=== PATIENT | female | born 1950 | race Caucasian/White ===

== ENCOUNTER → 2018-04-23 14:42 | Outpatient (CLI) | payer MEDICARE, OTHER, SELFPAY ==
[2018-04-23 17:24] LABS: Absolute Neutrophil Count 1.9 X10^3/uL (2.0-7.7); Basophil# 0.02 X10^3/uL; Basophil% 0.4 % (0-1); Eosinophils% 2.1 % (0-5); Hematocrit 41.2 % (37-47); Hemoglobin 13.3 g/dl (12.0-15.0); Mean Corp Hgb Conc 32.3 g/gl (32-36); Mean Corpuscular Hgb 30.4 pg (27.0-32.0); Mean Corpuscular Volume 94.3 fL (81-99); Mean Platelet Vol. 9.2 fl (6.2-12.0); Monocyte% 10.7 % (0-10); Neutrophil # 1.85 X10^3/uL (2.7-7.7); Neutrophil % 39.6 % (47-70); Platelet Count 279 K/mm3 (150-450); RBC Distribution Width SD 44.7 fl (35.1-43.9); Red Blood Count 4.37 M/mm3 (4.2-5.4); White Blood Count 4.7 K/mm3 (4.4-11.0)
[2018-04-23 17:28] LABS: POSITIVE COUNT NO; POSITIVE DIFFERENTIAL NO; POSITIVE MORPHOLOGY NO
[2018-04-23 17:39] LABS: AST(SGOT) 16 U/L (15-37); Alanine Aminotransfer ALT/SGPT 14 U/L (13-56); Albumin, Serum 3.6 g/dL (3.2-5.0); Alkaline Phosphatase 69 U/L (45-117); Anion Gap 8 (5-15); BUN 21 mg/dL (7-18); BUN/Creat Ratio 21.2 RATIO (10-20); Calcium,Total 8.3 mg/dL (8.5-10.1); Chloride 107 mmol/L (98-107); Cholesterol 240 mg/dL (200); Creatinine, Serum 0.99 mg/dL (0.55-1.02); EST Glomerular Filtration Rate 60 mL/min (>60); Est Glom Filt Rate - Afr Amer 72 mL/min (>60); Globulin 3.5 g/dL (2.2-4.2); Glucose 88 mg/dL (74-106); High Density Lipoprotein 76 mg/dL; Potassium 4.1 mmol/L (3.5-5.1); Protein, Total 7.1 g/dL (6.4-8.2); Sodium Level 143 mmol/L (136-145); Thyroid Stim Hormone (TSH) 1.91 uIU/mL (0.358-3.74); Triglycerides 82 mg/dL; Very Low Density Lipoprotein 16 mg/dL (5-40)
== END ==
PROVIDERS: Family Provider Family Medicine; PCP Family Medicine; Visit Provider Family Medicine
DX: I10 Essential (primary) hypertension (principal); F41.8 Other specified anxiety disorders
CPT/HCPCS: 36415; 80053; 80061; 84443; 85025

== ENCOUNTER 2018-05-19 06:25 | Day surgery (SDC) | payer MEDICARE, OTHER, SELFPAY ==
[2018-05-19] VITALS (7 sets, daily range): BP systolic 108–123; BP diastolic 77–84; PULSE 61–87; RESP 16; TEMP 36.1–36.4; O2SAT 98–99; BMI 35.2
--- NOTE | 2018-05-19 | COLBX_PTH ---
PATIENT: ROWDY ALVAREZ LOC: EN U#:[id number] AGE/SX: 67/F ROOM: RE05/19/[address]: Dr. Rocky Roca MD : 1950 BED: DIS: 05/19/2018 SPEC #: [id number] RECD: 05/19/18 09:34 STATUS: JOSELYN WILBURNGreg #: [id number] SANDOVAL: 05/19/18 00:[address]: Rocky Roca DEPT: SURGICAL PATHOLOGY RECD BY: Gordon Peck ENTERED: 05/19/18 11:06 SP TYPE: COLON BX OTHR DR: Dr. Jenifer Jameson MD Tissues: A - COLON BIOPSY B - Rectum, NOS Procedures: Surgery Specimen Level IV HEADER OPERATION: Colonoscopy PRE-OP DIAGNOSIS: Screening TISSUE SUBMITTED: A. Polyp biopsy hepatic flexure, B. Polyp biopsy rectum MICROSCOPIC DIAGNOSIS A. Polyp hepatic flexure, biopsy: Fragments of tubular adenoma. B. Polyp rectum, biopsy. Hyperplastic polyp. SJ:darion 05/20/18 MICROSCOPIC DESCRIPTION Slides are reviewed. GROSS DESCRIPTION A. Received in fixative is one container labeled with the patient's name and designated polyp biopsy hepatic flexure. The specimen consists of multiple fragments of tissue measuring 0.7 x 0.5 x 0.2. The specimen is totally submitted in one cassette. B. Received in fixative is one container labeled with the patient's name and designated polyp biopsy rectum. The specimen consists of one fragment of tissue measuring 0.4 x 0.3 x 0.2. The specimen is totally submitted in one cassette. RY:darion 05/18/18 TC:1 CPT:97957t1
--- NOTE | 2018-05-19 07:30 | PCM.HP.STD ---
Problem List (1) Screening for intestinal cancer Status: Acute History of Present Illness Date of Admission: 05/19/18 The patient is a 67 year old F who presents for screening colonoscopy today. Her previous one was greater than 10 years ago. She presents via our open access program. She denies bright red blood per rectum or melena. No abdominal pain. She states that she otherwise has been enjoying good health. She does not know any direct family members who have had colon polyps or colon cancer. She denies DVT. She is not on any anticoagulants. Past Medical History Allergies No Known Allergies Allergy (Verified 05/13/18 09:33) Home Medications: Ambulatory Orders Medication Instructions Recorded Buspirone HCl 7.5 mg PO QHS 05/13/18 Duloxetine Hcl [Cymbalta] 60 mg PO DAILY 05/13/18 Valsartan [Diovan] 80 mg PO DAILY 05/13/18 busPIRone [Buspar] 15 mg PO DAILY 05/13/18 Surgical History: - - Umbilical herniorrhaphy Microsurgery left hand Remote breast biopsy Smoking Status: Never smoker Tobacco Use: Non-smoker Review of Systems Constitutional: Denies: Anorexia Eyes: Denies: Blurred vision HEENT: Denies: Dysphasia Cardiovascular: Reports: Chest Pain Respiratory: Denies: Cough Gastrointestinal: Denies: Abdominal Pain Genitourinary: Denies: Dysuria Skin: Denies: Dryness Neurological: Denies: Balance problems Psychiatric: Reports: Anxiety Endocrine: Denies: Change in Body Habitus VTE Information - Inpt Only VTE Present on Admission: No Patient Problems: Active and Suspected Problems Screening for intestinal cancer (Acute) - Physical Exam General: Alert, Oriented x3, Cooperative, No apparent distress HEENT: Atraumatic Oral: Moist Mucosa Neck: Supple, Negative Carotid Bruits Lungs: Clear to auscultation Cardiovascular: Regular rate, Regular Rhythm Abdomen: Bowel Sounds Present, Soft, Non Tender, Non-Distended Extremities: No clubbing Skin: No rashes Musculoskeletal: No Tenderness to Palpation of Joints or Extremities Lymphatic: No Cervical, Supraclavicular, or Inguinal Adenopathy Neurological: Cranial nerves II-XII grossly intact Vital Signs Temp Pulse Resp BP Pulse Ox 97.6 F L 87 16 123/84 H 99 05/19/18 06:46 05/19/18 06:46 05/19/18 06:46 05/19/18 06:46 05/19/18 06:46 Oxygen Delivery Method Room Air Weight: 186 lb 8.177 oz Body Mass Index (BMI) 35.2 Assessment/Plan All Active Problems Screening for intestinal cancer (Acute) Patient in need of a screening colonoscopy with possible biopsy or polypectomy is indicated. She does not appear to have any increased risk factors. She has had an opportunity to ask and have questions answered. We will proceed with her discretion. Rocky Roca M.D., F.A.C.S.
--- NOTE | 2018-05-19 08:01 | PCM.OPRPT ---
Problem List (1) Screening for intestinal cancer Status: Acute Report of Operation Date of Procedure: 05/19/18 Pre-Operative Diagnosis: Screening for intestinal cancer Post-Operative Diagnosis: Sessile polyp of the hepatic flexure. Sessile polyp of the rectum. Grade 2-3 internal hemorrhoids. Long lax colon Surgery/Procedure Performed:: Colonoscopy with cold forcep polypectomy Description of Surgical Findings:: Timeout informed consent was obtained. 67-year-old female was taken to the endoscopy suite. She was placed in a left lateral decubitus position. Throughout the procedure total 100 mg Demerol and 4 mg of Versed were given as intravenous sedation. Digital rectal exam demonstrated grade 2-3 internal hemorrhoids. No mass lesions. Flexible colonoscope inserted in the rectum advanced through a very elongated tortuous lax colon. Transabdominal pressure was required to get scope to go to the hepatic flexure and the patient had to be placed in the supine position with further pressure. The scope was able to be advanced to the cecum. The cecum ileocecal valve was nicely achieved. The appendiceal base appeared simply slightly prominent photographs were obtained. There appear to be some stool within it. No mass lesion. The scope was carefully withdrawn from the ascending colon to the hepatic flexure. A 5 mm sessile polyp was identified and cold forceps were used to sample and eradicate stasis was intact. The scope was further withdrawn through the very elongated transverse and descending colon. Good visualization was achieved. Bowel prep was adequate there was still liquid stool throughout the colon but that could be aspirated. The scope was withdrawn to the proximal rectum where a 4 mm sessile polyp was identified and cold forceps were used to sample and eradicate this. Excess fluid and air was aspirated free the procedure was completed she tolerated it well. Impression Sessile polyp in the hepatic flexure. Sessile polyp of the rectum. Elongated lax colon Grade 2-3 internal hemorrhoids The patient will be notified of pathology results as they become available. Consider next colonoscopy in approximately 3 years. Previous colonoscopy was greater than 10 years prior. Cc: Dr. Jenifer Jameson Medications were given at 0736. Scope was inserted 0738. The cecum was reached at 0752. The procedure was completed at 0758. Rocky Roca M.D., F.A.C.S. Type of Anesthesia:: IV Sedation
== END 2018-05-19 08:53 | disposition home or self-care (01) ==
LOC: EN 06:27 → AC 06:28
PROVIDERS: Family Provider Family Medicine; PCP Family Medicine; Visit Provider Surgery
PROC: 0DJD8ZZ Inspection of Lower Intestinal Tract, Via Natural or Artificial Opening Endoscopic (ICD-10-PCS; CPT 45378; principal; 2018-05-19 07:25)
DX: Z12.11 Encounter for screening for malignant neoplasm of colon (principal); D12.3 Benign neoplasm of transverse colon; D12.8 Benign neoplasm of rectum; K64.8 Other hemorrhoids; F41.9 Anxiety disorder, unspecified; Z79.899 Other long term (current) drug therapy
CPT/HCPCS: 45380; 88305; 99152; 99153; J7120

== ENCOUNTER → 2019-12-29 11:06 | Outpatient (CLI) | payer MEDICARE, OTHER, SELFPAY ==
[2019-12-29 15:49] LABS: Absolute Lymphocyte Count 2.72 X10^3/uL (0.83-4.51); Absolute Neutrophil Count 2.2 X10^3/uL (2.0-7.7); Basophil# 0.03 X10^3/uL; Basophil% 0.5 % (0-1); Eosinophil# 0.16 X10^3/uL; Eosinophils% 2.9 % (0-5); Hematocrit 43.1 % (37-47); Hemoglobin 13.6 g/dL (12.0-15.0); Lymphocyte # 2.72 X10^3/ul (4.0); Lymphocyte % 48.7 % (19-41); Mean Corp Hgb Conc 31.6 g/dL (32-36); Mean Corpuscular Hgb 30.4 pg (27.0-32.0); Mean Corpuscular Volume 96.2 fL (81-99); Mean Platelet Vol. 9.1 fl (6.2-12.0); Monocyte# 0.49 X10^3/uL; Monocyte% 8.8 % (0-10); NRBC Flagged by Analyzer 0 % (0-5); Neutrophil # 2.18 X10^3/uL (2.7-7.7); Neutrophil % 38.9 % (47-70); Platelet Count 306 K/mm3 (150-450); RBC Distribution Width CV 12.5 % (11.6-14.6); RBC Distribution Width SD 44.4 fl (35.1-43.9); Red Blood Count 4.48 M/mm3 (4.2-5.4); White Blood Count 5.6 K/mm3 (4.4-11.0)
[2019-12-29 15:59] LABS: AST(SGOT) 11 U/L (15-37); Alanine Aminotransfer ALT/SGPT 18 U/L (13-56); Albumin, Serum 3.4 g/dL (3.2-5.0); Alkaline Phosphatase 62 U/L (45-117); Anion Gap 3 (5-15); BUN 19 mg/dL (7-18); BUN/Creat Ratio 17.8 RATIO (10-20); Calcium,Total 8.8 mg/dL (8.5-10.1); Chloride 107 mmol/L (98-107); Cholesterol 243 mg/dL (200); Creatinine, Serum 1.07 mg/dL (0.55-1.02); EST Glomerular Filtration Rate 54 mL/min (>60); Est Glom Filt Rate - Afr Amer 66 mL/min (>60); Globulin 3.5 g/dL (2.2-4.2); Glucose 94 mg/dL (74-106); High Density Lipoprotein 79 mg/dL; Potassium 3.7 mmol/L (3.5-5.1); Protein, Total 6.9 g/dL (6.4-8.2); Sodium Level 141 mmol/L (136-145); Triglycerides 105 mg/dL; Very Low Density Lipoprotein 21 mg/dL (5-40)
[2020-01-03 08:38] LABS: Hepatitis A IgM Antibody Negative (Negative)
== END ==
PROVIDERS: PCP Family Medicine; Visit Provider Family Medicine
DX: I10 Essential (primary) hypertension (principal); E78.5 Hyperlipidemia, unspecified
CPT/HCPCS: 36415; 80053; 80061; 85025; 86709

== ENCOUNTER → 2020-12-14 14:08 | Outpatient (CLI) | payer MEDICARE, OTHER, SELFPAY ==
[2018-05-19 06:46] VITALS: BMI 35.2
[2020-12-14 17:29] LABS: Absolute Lymphocyte Count 2.46 X10^3/uL (0.83-4.51); Absolute Neutrophil Count 2.9 X10^3/uL (2.0-7.7); Basophil# 0.03 X10^3/uL; Basophil% 0.5 % (0-1); Eosinophils% 3.3 % (0-5); Hematocrit 41.8 % (37-47); Hemoglobin 13.4 g/dL (12.0-15.0); Lymphocyte # 2.46 X10^3/ul (4.0); Lymphocyte % 40.3 % (19-41); Mean Corp Hgb Conc 32.1 g/dL (32-36); Mean Corpuscular Hgb 30.3 pg (27.0-32.0); Mean Corpuscular Volume 94.6 fL (81-99); Mean Platelet Vol. 9.4 fl (6.2-12.0); Monocyte# 0.56 X10^3/uL; Monocyte% 9.2 % (0-10); NRBC Flagged by Analyzer 0 % (0-5); Neutrophil # 2.85 X10^3/uL (2.7-7.7); Neutrophil % 46.5 % (47-70); Platelet Count 343 K/mm3 (150-450); RBC Distribution Width CV 12.9 % (11.6-14.6); RBC Distribution Width SD 44.8 fl (35.1-43.9); Red Blood Count 4.42 M/mm3 (4.2-5.4); White Blood Count 6.1 K/mm3 (4.4-11.0)
[2020-12-14 17:53] LABS: AST(SGOT) 14 U/L (15-37); Alanine Aminotransfer ALT/SGPT 19 U/L (13-56); Albumin, Serum 3.6 g/dL (3.2-5.0); Alkaline Phosphatase 73 U/L (45-117); Anion Gap 5 (5-15); BUN 18 mg/dL (7-18); BUN/Creat Ratio 15.5 RATIO (10-20); Chloride 109 mmol/L (98-107); Cholesterol 258 mg/dL (200); Creatinine, Serum 1.16 mg/dL (0.55-1.02); EST Glomerular Filtration Rate 49 mL/min (>60); Est Glom Filt Rate - Afr Amer 60 mL/min (>60); Globulin 3.6 g/dL (2.2-4.2); Glucose 83 mg/dL (74-106); High Density Lipoprotein 81 mg/dL; Potassium 3.9 mmol/L (3.5-5.1); Protein, Total 7.2 g/dL (6.4-8.2); Sodium Level 141 mmol/L (136-145); Triglycerides 102 mg/dL; Very Low Density Lipoprotein 20 mg/dL (5-40)
== END ==
PROVIDERS: PCP Family Medicine; Visit Provider Family Medicine
DX: Z00.01 Encounter for general adult medical examination with abnormal findings (principal); I10 Essential (primary) hypertension; F41.8 Other specified anxiety disorders
CPT/HCPCS: 36415; 80053; 80061; 85025

== ENCOUNTER 2021-09-18 06:08 | Day surgery (SDC) | payer MEDICARE, OTHER, SELFPAY ==
--- NOTE | 2021-09-18 06:25 | PCM.HP.STD ---
HPI - General HPI Narrative ROWDY ALVAREZ, is a 71 F who presents today for surveillance colonoscopy. 2018 she had colon polyps identified. She currently has no symptoms. No abdominal pain. No bright red blood per rectum or melena. She tolerated her bowel prep. She has not had COVID-19. She states that she has been vaccinated. She is unsure about her family history because her mother has dementia. She states her mother got routine colonoscopy follow-up. [facility] Medical History (Updated 09/18/21 @ 06:[address] Rocky Roca MD) Alcohol use Asthma Cardiology follow-up encounter Chronic cough Depression High cholesterol History of echocardiogram History of irregular heartbeat History of stress test Hypertension Non-smoker Wears glasses Home Medications buspirone 15 mg PO BID 05/13/18 [History Last Taken Unknown] duloxetine [Cymbalta] 60 mg PO DAILY 05/13/18 [History Last Taken Unknown] valsartan 80 mg PO DAILY 05/13/18 [History Last Taken Unknown] calcium carbonate-vitamin D3 [Calcium 600 with Vitamin D3] 1 cap PO BID 09/14/21 [History Last Taken Unknown] pravastatin 20 mg PO DAILY 09/14/21 [History Last Taken Unknown] Allergy/AdvReac Type Severity Reaction Status Date / Time No Known Allergies Allergy Verified 09/14/21 10:00 Surgical History (Updated 09/14/21 @ 10:12 by Roxanne Montes) Hx of colonoscopy Hx of hand surgery Hx of right breast biopsy Hx of umbilical hernia repair Social History Smoking Status: Never smoker ROS Constitutional Constitutional: Reports systems reviewed and no addt'l complaints, except as documented Cardiovascular Cardiovascular: Denies chest pain Respiratory/Chest Respiratory/Chest: Denies shortness of breath at rest Gastrointestinal Gastrointestinal: Denies abdominal pain, change in bowel habits, hematochezia or melena Physical Exam Const alert, oriented x3 and no apparent distress General Appearance: cooperative and comfortable Eyes General Eye: normal appearance of both eyes Neck General: normal visual inspection Chest inspection of chest normal Resp Effort and Inspection: able to speak in complete sentences and symmetric chest movement Auscultation: clear to auscultation bilaterally Cardio regular rate and regular rhythm GI soft to palpation, non-tender and non-distended Extremity no calf tenderness Neuro oriented x3 Psych thought process normal Assessment & Plan Assessment/Plan (1) Personal history of colonic polyps: PLAN: 71-year-old female presents for a surveillance colonoscopy with possible biopsy or polypectomy as indicated. She is aware of the technique, benefit, risk, alternatives. She has had an opportunity to ask and have questions answered. She is otherwise asymptomatic. Previous colonoscopy polyps 2018. She presents via open access today. Rocky Roca M.D., F.A.C.S. Procedure Criteria Type of Procedure Procedure Type: Elective Elective Risks - COVID COVID Risk Discussion: The surgeon/proceduralist and patient have discussed in detail the risk of exposure to and/or potential harm posed by the COVID-19 virus with having a surgery/procedure at this time versus the risk of delaying the surgery/procedure. It is not possible to know either the risk of delaying the surgery or procedure or chance of getting an infection with perfect accuracy, but a joint decision was made between the patient and the surgeon/proceduralist to proceed at this time with the scheduled surgery/procedure as indicated on the consent form.
[2021-09-18 06:43] VITALS: BP 123/87; PULSE 82; RESP 16; TEMP 36.4; O2SAT 100; BMI 36.8
[2021-09-18] MEDS: Lactated Ringers 1,000 ML 100 ML IV (06:52)
--- NOTE | 2021-09-18 07:45 | COLBX_PTH ---
PATIENT: ROWDY ALVAREZ LOC: EN U#:[id number] AGE/SX: 71/F ROOM: RE09/18/[address]: Dr. Rocky Roca MD : 1950 BED: DIS: 09/18/2021 SPEC #: [id number] RECD: 09/18/21 09:49 STATUS: JOSELYN ENRIQUEZ #: [id number] SANDOVAL: 09/18/21 07:[address]: Rocky Roca DEPT: SURGICAL PATHOLOGY RECD BY: Luana Low ENTERED: 09/18/21 10:48 SP TYPE: COLON BX OTHR DR: Dr. Jenifer Jameson MD Tissues: A - Sigmoid colon biopsy B - Rectum, NOS C - Rectum, NOS Procedures: Surgery Specimen Level IV HEADER OPERATION: Colonoscopy ? open access (MAC) PRE-OP DIAGNOSIS: History of colonic polyps TISSUE SUBMITTED: A ? Proximal sigmoid polyp biopsy, B ? Rectum polyp biopsy, C - Rectum polyp #2 biopsy MICROSCOPIC DIAGNOSIS A. Proximal sigmoid polyp, biopsy: A fragment of colonic mucosa, no pathologic diagnosis. See comment. B. Rectum polyp, biopsy: Hyperplastic polyp. C. Rectum polyp #2, biopsy: Fragments of hyperplastic polyp. SJ:rg 09/19/2021 COMMENT A. Hyperplastic or adenomatous changes are not identified. MICROSCOPIC DESCRIPTION Slides are reviewed. GROSS DESCRIPTION A - Received in fixative is one container labeled with the patient's name and designated proximal sigmoid polyp biopsy. The specimen consists of one irregular fragment of light sandoval soft tissue that measures 0.3 x 0.3 x 0.1 cm. The specimen is totally submitted in one cassette. B - Received in fixative is one container labeled with the patient's name and designated rectum polyp biopsy. The specimen consists of one irregular fragment of light sandoval soft tissue that measures 0.3 x 0.3 x 0.1 cm. The specimen is totally submitted in one cassette. C - Received in fixative is one container labeled with the patient's name and designated rectal polyp #2 biopsy. The specimen consists of two irregular fragments of light sandoval soft tissue that in aggregate measure 0.3 x 0.3 x 0.1 cm. The specimen is totally submitted in one cassette. / COREEN:kaden 09/18/21 TC:1 CPT: 86710 x3
[2021-09-18 08:30] VITALS: BP 122/81; BP 123/87; PULSE 79; RESP 16; TEMP 36.3; O2SAT 97
--- NOTE | 2021-09-18 08:33 | OP.COLON_ITS ---
Patient Name: Jroy Rojas Procedure Date: 09/18/2021 7:54 AM Date of : 1950 Age: 71 Procedure: Colonoscopy Indications: High risk colon cancer surveillance: Personal history of colonic polyps Providers: Rocky Roca MD Medicines: See the Anesthesia note for documentation of the administered medications Patient Profile: Last Colonoscopy: 2017. Complications: No immediate complications. Procedure: Pre-Anesthesia Assessment: - Prior to the procedure, a History and Physical was performed, and patient medications and allergies were reviewed. The patient's tolerance of previous anesthesia was also reviewed. The risks and benefits of the procedure and the sedation options and risks were discussed with the patient. All questions were answered, and informed consent was obtained. Prior Anticoagulants: The patient has taken no previous anticoagulant or antiplatelet agents. ASA Grade Assessment: II - A patient with mild systemic disease. After reviewing the risks and benefits, the patient was deemed in satisfactory condition to undergo the procedure. After I obtained informed consent, the scope was passed under direct vision. Throughout the procedure, the patient's blood pressure, pulse, and oxygen saturations were monitored continuously. The Colonoscope was introduced through the anus and advanced to the cecum, identified by appendiceal orifice and ileocecal valve. The colonoscopy was somewhat difficult due to a tortuous colon. The patient tolerated the procedure well. The quality of the bowel preparation was good. Scope In: 8:04:07 AM Scope Withdrawal Time 0 hours 12 minutes 52 seconds Scope Out: 8:24:38 AM Total Procedure Duration Time 0 hours 20 minutes 31 seconds Findings: The digital rectal exam findings include decreased sphincter tone, non-thrombosed internal hemorrhoids and internal hemorrhoids that prolapse with straining, but require manual replacement into the anal canal (Grade III). A 4 mm polyp was found in the sigmoid colon. The polyp was sessile. The polyp was removed with a cold biopsy forceps. Resection and retrieval were complete. A 5 mm polyp was found in the rectum. The polyp was sessile. The polyp was removed with a cold biopsy forceps. Resection and retrieval were complete. A 7 mm polyp was found in the rectum. The polyp was sessile. The polyp was removed with a cold biopsy forceps. Resection and retrieval were complete. Impression: - Decreased sphincter tone, non-thrombosed internal hemorrhoids and internal hemorrhoids that prolapse with straining, but require manual replacement into the anal canal (Grade III) found on digital rectal exam. - One 4 mm polyp in the sigmoid colon, removed with a cold biopsy forceps. Resected and retrieved. - One 5 mm polyp in the rectum, removed with a cold biopsy forceps. Resected and retrieved. - One 7 mm polyp in the rectum, removed with a cold biopsy forceps. Resected and retrieved. Recommendation: - Telephone my office for pathology results in 1 week. - Repeat colonoscopy in 5 years for surveillance based on pathology results. - Continue present medications. Procedure Code(s): --- Professional --- 23034, Colonoscopy, flexible; with biopsy, single or multiple Diagnosis Code(s): --- Professional --- Z86.010, Personal history of colonic polyps K62.89, Other specified diseases of anus and rectum D12.5, Benign neoplasm of sigmoid colon K62.1, Rectal polyp K64.2, Third degree hemorrhoids CPT copyright 2017 [employer]. All rights reserved. The codes documented in this report are preliminary and upon business solutions consultant review may be revised to meet current compliance requirements. Rocky Roca MD 09/18/2021 8:32:50 AM This report has been signed electronically. Number of Addenda: 0 Note Initiated On: 09/18/2021 7:54 AM
--- NOTE | 2021-09-18 08:34 | OP.CCLET_ITS ---
09/18/2021 Jenifer Jameson [place] [id number] [address] Re : Colonoscopy procedure for Jory Rojas Dear Dr. Jameson This procedure was performed on Saturday, September 18, 2021. My impressions and recommendations are as follows: Impressions : - Decreased sphincter tone, non-thrombosed internal hemorrhoids and internal hemorrhoids that prolapse with straining, but require manual replacement into the anal canal (Grade III) found on digital rectal exam. - One 4 mm polyp in the sigmoid colon, removed with a cold biopsy forceps. Resected and retrieved. - One 5 mm polyp in the rectum, removed with a cold biopsy forceps. Resected and retrieved. - One 7 mm polyp in the rectum, removed with a cold biopsy forceps. Resected and retrieved. Recommendations : - Telephone my office for pathology results in 1 week. - Repeat colonoscopy in 5 years for surveillance based on pathology results. - Continue present medications. My findings are described in the full procedure note, which is enclosed. If I can be of further assistance, please feel free to contact me at Doctor phone number(s): Work: . Sincerely, Rocky Roca MD 09/18/2021 8:32:50 AM This report has been signed electronically.
[2021-09-18 08:35] VITALS: BP 112/75; BP 123/87; PULSE 78; RESP 16; O2SAT 97
[2021-09-18 08:40] VITALS: BP 120/81; BP 123/87; PULSE 73; RESP 16; O2SAT 99
[2021-09-18 08:45] VITALS: BP 123/87; BP 127/90; PULSE 69; RESP 16; TEMP 36.3; O2SAT 100
[2021-09-18 09:18] VITALS: BP 123/87
== END 2021-09-18 09:20 | disposition home or self-care (01) ==
LOC: EN 06:14 → AC 06:20
PROVIDERS: PCP Family Medicine; Referring Provider Family Medicine; Visit Provider Surgery
PROC: 0DJD8ZZ Inspection of Lower Intestinal Tract, Via Natural or Artificial Opening Endoscopic (ICD-10-PCS; CPT 45378; principal; 2021-09-18 07:40)
DX: Z12.11 Encounter for screening for malignant neoplasm of colon (principal); D12.5 Benign neoplasm of sigmoid colon; K62.1 Rectal polyp; K64.2 Third degree hemorrhoids; I10 Essential (primary) hypertension; E78.00 Pure hypercholesterolemia, unspecified; J45.909 Unspecified asthma, uncomplicated; F32.A Depression, unspecified; Z86.010 Personal history of colon polyps; Z79.899 Other long term (current) drug therapy; Z87.19 Personal history of other diseases of the digestive system
CPT/HCPCS: 45380; 88305; J7120; J2405

== ENCOUNTER 2022-10-08 08:00 | Outpatient (RCR) | payer MEDICARE, OTHER, SELFPAY ==
--- NOTE | 2022-10-08 09:05 | BH.SGPN.GN ---
Behaviors/Verbalizations/Mental Status: [] Eye contact is good. Motor activity is appropriate. Appearance is casual. Speech is Appropriate. Mood is depressed. Affect is flat. Thoughts are linear and logical. No evidence of psychosis. Reviewed daily check in sheet and pt reports 1/5 for suicidal ideations and 0/5 for intent. Client Response/Progress/Benefit: [] Pt participated when prompted. Attentive. Daily symptom tracker notes 3/5 for anxiety and depression. This was pt?s first day in [facility] level of care. She briefly introduced herself and stated that her goal is to ?stop living inside my head?. She mentioned struggling with depression, overwhelming thoughts, and lack of energy. Group was welcoming and offered feedback for her first day in [facility] which was beneficial. Will continue in [facility] to prevent decompensation, increase healthy coping, and improve functioning. Narrative Note: []
--- NOTE | 2022-10-08 10:15 | BH.SGPN.GN ---
Behaviors/Verbalizations/Mental Status: [] Eye contact is fair. Motor activity is appropriate. Appearance is casual. Speech is Appropriate. Mood is dysthymic. Affect is constricted. Thoughts are linear and logical. No evidence of psychosis. Client Response/Progress/Benefit: [] Client was an attentive during interactive group discussions by writing notes and sharing when prompted. Attentive during psychoeducation on the six types of boundaries (physical, emotional, intellectual, sexual, time, and material) AEB note-taking. Along with peers contributed to interactive discussion on defining what a boundary is in mental health. Client along with peers identified challenges to setting boundaries which included: fear of other's response, guilt, fear of losing relationships, and lack of confidence. Worked with peers to identify the benefits to setting boundaries such as increased control, benefit to mental health, and increased confidence. Client reported constantly renegotiating boundaries can increase stress level. Recognizes importance of setting and following through with boundaries. Will continue in IOP to decrease depression, increase follow through of healthy coping skills, and prevent decompensation.
--- NOTE | 2022-10-09 10:10 | BH.SGPN.GN ---
Behaviors/Verbalizations/Mental Status: [] Eye contact is good. Motor activity is appropriate. Appearance is casual. Speech is Appropriate. Mood is anxious. Affect is congruent. Thoughts are linear and logical. No evidence of psychosis. Client Response/Progress/Benefit: [] Pt participated when prompted, however did not fill out stress worksheet. Attentive during psychoeducation. Attentive during interactive group discussions on defining stress, benefits of stress, and how they respond when feeling overwhelmed with stress. Benefited from increased understanding of stressors and how they can impact mental health. Will continue in IOP to maintain safety, prevent decompensation, and increase healthy coping. Narrative Note: []
--- NOTE | 2022-10-09 10:35 | BH.NA_ITS ---
Physical Data - Vital Signs Pulse Rate: 83 Blood Pressure: 148/99 - Height/Weight Height: 1.55 m Weight:: 86.183 kg Weight in Pounds: 190.0 lbs Current Medication Compliance - Medication Compliance Do you take your medication as prescribed?: Yes Nutritional History - Appetite Nutritional Instructions:: If client shows signs of a swallowing problem, weight change of 10 pounds or more in the last month, or is on a diabetic diet, the physician will review and request a dietitian consult, as appropriate. All unintentional weight loss will be referred to the physician for decision on need for dietitian consult. Describe your appetite:: Fair - Client states she has gradually been losing a small amount of weight unintentionally, and states her appetite is somewhat decreased. Functional Assessment - Sleep Pattern Describe any problems with sleeping: Client states she sleeps about 6-8 hours per night. - Activities Motor Activity:: Functional Sensory/Communication Assess - Vision Problems Do you have any vision problems?: Glasses - Communication Problems What is your primary language?: Luxembourgish Medical Problems/History - Cardiac Conditions Cardiovascular: Hypertension, Other (See comments) - high cholesterol, history of an irregular heartbeat - Respiratory Conditions Respiratory: Asthma - as a child- no issues in over 50 years - Musculoskeletal Conditions Musculoskeletal: Other (See comments) - osteopenia - Pain Assessment Do you have acute or chronic pain?: No Surgical History - Surgical History Have you had any surgeries? If so, list type and date:: Yes - hand surgery, dodie ast biopsy, umbilical hernia Substance Abuse - Substance Abuse Please describe substance abuse in the last 30 days:: Client reports for over 20 years, she has been drinking alcohol daily, usually 16oz of wine or beer. Client denies tobacco or substance use. Client drinks 1-2 cups of coffee per day. Mental Status Summary - Mental Status Significant Findings/Observations on Appearance and Mood:: Client is alert and oriented x 4. Client is casually groomed with good hygiene. Client is cooperative with assessment. Client makes good eye contact. Client's voice has normal rate and volume. Client has appropriate affect and makes logical associations. Client has normal processing. Client denies delusions/hallucinations. Client denies SI, but does state for about the last 20 years she has felt indifferent about if she wakes up in the morning or not. Suicide Assessment - Suicidal Ideation Are you currently or have you been suicidal in the past?: Yes - survival ambivalence- denies active SI Suicidal Intentional Rating Scale (SIRS): Suicidal thoughts (past) Physician Notification: If Active suicidal thoughts/Will not contract for safety is checked, contact physician and document in the Physician Notification section below. Assault History/Potential Past Psychiatric History - MH Treatment Hx Past Psychiatric Medications:: Prozac Age of first mental health symptoms: Client states she was first medicated for depression around age 42. Current providers for mental health treatment (counselor, psychiatrist, registered nurse hh case manager, etc.): Dr. Martinez at [facility] Fall Risk Assessment - Age Age: 60-70 - Mental Status Mental Status: Willing & able to ask for assistance when needed - Physical Status Physical Status: No problems - Impairments Impairments: None - Elimination Elimination: Continent AND independent - Gait or Balance Gait or Balance: Walks independently - Hx of Falls History of falls in the past 6 months: No known history - Medications/Substances Psychotropics:: Antidepressants Medications/substances used within the past 24 hours or ordered to administer: 1-2 of the medications/substances listed above - Total Score Total Points:: 2 RN Summary of Impressions - Impressions Recommendations: Include psychiatric and medical issues, treatment planning recommendations, and discharge planning needs. Impressions: Psychiatric Issues: 1. Major depressive disorder, recurrent, severe without psychosis. 2. Generalized anxiety disorder - Level of Care How do the client's current symptoms and functional deficits support need for this level of care?: Client was self-referred to IOP for depression symptoms. Client states she has been depressed for many years, but states she has been more depressed since 2018 when she moved to [place] to care for her mom who has dementia. Client states for about 20 years, she has felt like I don't care if I wake up in the morning or not. Client reports decreased interest in doing ADL's, stays in bed for as long as she can everyday, and anhedonia. IOP will promote gains and prevent further decompensation while providing social support and skills training.
--- NOTE | 2022-10-09 11:10 | BH.SGPN.GN ---
Behaviors/Verbalizations/Mental Status: []Pt alert and oriented, casually dressed and groomed. Eye contact good. Motor activity appropriate. Speech within normal limits. Affect constricted, mood anxious. Thoughts linear, logical, no signs of hallucinations or delusions. Client Response/Progress/Benefit: []Pt participated at times during group discussions. Attentive during psychoeducation. Participated in experiential activity in which group members had to utilize stress management skills in the moment. Pt agreed with peers that their cooperation and communication was a helpful resource and pt worked well with peers to problem-solve the stressors presented. Pt engaged in review of the 4 A?s and picked wanting to work on accepting and adapting her stressors. Pt specified that she wants to let go of anger she feels about house projects and set more realistic goals. Benefited from processing in the moment stress management strategies and identifying new ways to cope with stress. Will continue in IOP tx to prevent decompensation, improve overall functioning, and gain healthy coping skills. Narrative Note: []
[2022-10-09 12:10] VITALS: BP 148/99; PULSE 83
--- NOTE | 2022-10-09 12:39 | BH.PSY.EVA_ITS ---
Psychiatric Evaluation Initial Evaluation Initial Evaluation: History of Present Illness: [] The patient is a 72-year-old female with a history of depression who referred herself to the [facility] behavioral health IOP program. She referred herself because over the last year or so she has had worsening symptoms of depression that have been making it difficult for her to function and have impacted the quality of her life. She feels she has to devote energy into putting a life together in [place]. 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 Part of the reason she retired is because her father and brother both at age 62 of throat cancer and some other kind of cancer respectively. Her then lost his job in [place] when the patient was 54 years old he did not get a new job in [facility] and [place] specifically was too expensive to live for them without the patient working so they moved to [facility] in 2018 from [place]. In addition the patient's mother was placed into a custodial for [facility] in 2018 and that is part of the reason she moved back to [place]. She had a brother in [place] but the same day she moved to [place] he moved to [place]. She has no other people she knows in [place] and feels she has no support in [place]. 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 COVID pandemic in 2019 worsened her situation. Her had a triple bypass in 2019 and he has hypertension, gastroparesis, diabetes insipidus and broke his right shoulder after falling down while drunk. Her biggest stress now she states is her who is 68 years old and has numerous health problems. is unable to drive so she has to constantly drive him to doctor appointments in [place] and cooks for him and shops for him and other. The patient wants to socialize, volunteer and likes to be politically active but does not have the energy and possibly does not have the time to do this. She has been isolating herself due to feeling down and sad. She has anhedonia, decreased appetite, lack of motivation and low energy which makes it difficult to get out of bed. She denies panic attacks and denies any history of self- harm. She drinks 2 cups of coffee daily. She sleeps around 7 hours a night but will would stay in bed until noon if she could but has to get out of bed to take care of her . Concentration is decreased although she is able to enjoy reading a book when she gets time. She admits to passive thoughts of and endorses hopelessness and worthlessness. She is a worrier by nature but denies panic attacks. She denies guilt, suicidal ideation, homicidal ideation, hallucinations, delusions or symptoms of janet ever. She denies eating disorder, PTSD, trauma or seizure or head trauma. Current Psychiatric Medications: [] Cymbalta 60 mg p.o. daily (on the same dose for 5 to 10 years); BuSpar 15 mg p.o. daily for over 5 years. Past Psychiatric History: [] She sees Dr. Martinez for medication since 2018. No counseling since 2018 but would like to go back to it as it has been helpful in the past. She was first depressed in her teenage years and took her first psychiatric medications while in her 40s. She saw a counselor 1 time when she was in graduate school. Then saw psychiatrist in the late 1980s until moving to [place] in 2018 and also got counseling. She has never been admitted to the hospital for psychiatric admissions and no suicide attempts. She took Prozac in the past and is not sure if she took any other medications. Substance Use History: [] She drinks 1 to 2 glasses of wine with dinner and occasionally has a whiskey night But has been tapering off alcohol as she is losing interest in drinking. She denies any rehab in anything or any other drug use or any other heavier drinking. She denies blacking out, morning drinking or symptoms of withdrawal ever. Denies any nicotine or marijuana or other illicit drug use. Allergies: [] No known allergies Medications: [] Psych medications as dictated above plus valsartan, pravastatin, calcium and vitamin D for osteopenia Past Medical History: [] Hypertension, elevated cholesterol, osteopenia. She had umbilical hernia repair after the of her second child and a left thumb surgery. She is a 2 para 2 female with 2 adult children. Denies any other medical illnesses. Family Psychiatric History: [] Mother has history of depression. Several autistic distant cousins on her father side of the family. No completed suicides in the family. No substance issues known in the family. Personal/Social History: [] Patient was born in [place] but raised in [place]. She moved around a lot throughout her childhood until she went to college and during her childhood moved from [place] to [place], to [place], to [facility], to [place] and then back to [place] before going to college. Her father was always working and traveling and they were always changing schools and this was frequently difficult for her. She is 1 of 5 children and felt constant judgment from her mother and her success was measured by her grades in school. She feels this pressure from her mother caused her to only be interested in doing things that she received tangible credit for. She had 1 brother who at age 24 brain cancer. The patient is and lives in a house in [place] with her who she is currently taking care of. They had a son and a daughter who are now 35 and 37 years old respectively. Her son lives in [place] and her daughter lives in [place]. She has one 2-1/2-year-old granddaughter who she sees daily videos of but does not see in person very often. 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 She went through menopause around age 52 and had no problems. Legal History: [] No arrests or DUIs. 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 Review of Systems: [] Occasional chest pain which she believes to be stress related and she has seen a director it project and had a work-up done since 2014 off-and-on and there were no concerns. Joint pain in her hips but otherwise review of systems negative except as noted in present illness. Vital Signs: [] Vital signs and exam are reviewed in the medical records and in the nurses notes and updated and the patient is deemed medically able to participate in the IOP program. Mental Status Examination: [] The patient is a 72-year-old female who appears normal for stated age and is casually dressed and groomed with good hygiene. She is ambulatory with a normal gait and is cooperative during the interview. She has no psychomotor agitation or retardation. Eye contact is good and speech is normal rate and rhythm and fluent with no pressure. Mood is depressed. Affect is mildly constricted to full and normal. Thought process is goal-directed and organized. Thought content: The patient wishes to have the time and energy to pursue socializing, volunteer work and volunteer political activity. There is evidence of passive thoughts of . There is no evidence of suicidal ideation, plan for suicide, homicidal ideation, hallucinations, delusions or janet. Reality testing is intact. Impulsivity is low. Intelligence is above average. Judgment is intact. Insight is fair to good. Diagnoses: [] 1. Major depressive disorder, recurrent, severe without psychosis 2. Generalized anxiety disorder 3. Primary support issues Plan: [] The patient will start the IOP program at [facility] as the structure, support, education and group therapy will hopefully prevent worsening of the patient's symptoms that might require hospitalization. She felt safe during the interview and if it anytime she does not feel safe she will let us know or go to the emergency room. The risk, options, possible complications and side effects of medication options were discussed with the patient and she understands and accepts these. She will continue on her Cymbalta for now. She understands that it may not be working as efficiently as it did in the beginning but I would not recommend increasing it as it might just lead to urinary retention and other anticholinergic side effects. The patient agrees to add Wellbutrin XL 150 mg p.o. every morning. The patient understands that she will continue counseling after the IOP program and understands the need to limit her alcohol use. I will see the patient in follow-up in 2 weeks and she will continue to follow-up with her outpatient providers.
--- NOTE | 2022-10-09 12:52 | BH.DR.ITP ---
Initial Treatment Plan Patient Information Visit Information: ADMISSION DATE: EXPECTED LOS: 4-6 weeks Problems/Symptoms Problem #1:: Depression Symptom:: Sadness, hopelessness, worthlessness, fatigue, isolation, anhedonia, low energy, passive thoughts of , decreased concentration Problem #2:: Anxiety Symptom:: Worry, rumination
--- NOTE | 2022-10-11 09:10 | BH.SGPN.GN ---
Behaviors/Verbalizations/Mental Status: [] Eye contact is good. Motor activity is appropriate. Appearance is casual. Speech is Appropriate. Mood is euthymic. Affect is full. Thoughts are linear and logical. No evidence of psychosis. Reviewed daily check in sheet and pt reports 1/5 for suicidal thoughts and 0/5 for intent. Client Response/Progress/Benefit: [] Pt participated at times during the group discussion. Attentive. Emotion for today is ?hopeful?. Daily symptom tracker notes 3/5 for depression and 2/5 for agitation. Mental health win was that she prepared a meal yesterday which took a concerted effort, planning, shopping, and organizing. Shared that she had not done this is some time during to lack of motivation and energy. Identified the benefits of this to her mood and overall wellness. Shared a few stressors as well. Benefited from group support, encouragement, and feedback. Will continue in IOP to improve functioning and prevent decompensation.? Narrative Note: []
--- NOTE | 2022-10-11 10:10 | BH.SGPN.GN ---
Behaviors/Verbalizations/Mental Status: []Eye contact is good. Alert and oriented. Motor activity is appropriate. Appearance is casual. grooming is appropriate. Speech is Appropriate. Mood is dysthymic. Affect is constricted. Thoughts are linear and logical. No evidence of psychosis or hallucinations. Client Response/Progress/Benefit: []Client passive participate AEB providing no contributions, however did appear to listen attentively to others. The group identified barriers to managing emotions such as unable to identify the emotion, negative self-talk, catastrophizing, jumping to conclusions, personalizing, and reading other?s body language. During group activity, client mostly quiet. Client benefited from session to gain understanding on the importance of managing emotions to improve daily functioning. Client will continue IOP to decrease depression, improve daily functioning, and prevent decompensation.
--- NOTE | 2022-10-11 11:19 | BH.SGPN.GN ---
Behaviors/Verbalizations/Mental Status: []Pt alert and oriented, casual appearance. Eye contact good. Motor activity appropriate. Speech within normal limits. Affect constricted, mood depressed. Thoughts linear, logical, no signs of hallucinations or delusions. Client Response/Progress/Benefit: []Pt engaged in session AEB pt listening attentively to peers, taking notes, and providing some input. Attentive during psychoeducation on 4 zones of regulation. Pt able to identify feelings and behaviors pt exhibits for each zone.? Pt identified coping skills one can use to support self in each zone. Pt stated belief that pt is in the yellow zone today as pt feels anxious and agitated today. Pt reports spending time listening to music and doing a craft will help pt get out of the yellow zone today. Benefited from increased education on zones of regulation or stages of alertness for emotions and healthy coping skills to use for each zone. Pt will IOP tx to increase mood stability, reduce apathy, and improve healthy habits. ? Narrative Note: []
--- NOTE | 2022-10-11 14:45 | BH.MDN_ITS ---
Multi-Disciplinary Note - Note 45-min Individual Time Started:: 12:20 Date: 10/11/22 Purpose of session/treatment goals addressed:: To gather information on pt's current stressors, symptoms, triggers, and tx goals. Another goal was to build rapport and provide emotional support. Eye Contact:: Good Motor Activity:: Restless Appearance:: Casual Speech:: Appropriate Mood:: Anxious, Dysthymic Affect:: Constricted Thoughts:: Linear, Logical, No evidence of hallucinations/delusions noted Staff Interventions:: rapport building, strengths perspective, treatment planning, goal setting Client Response:: Pt responded well to session, open to meeting with therapist. Pt reports IOP went well this week, but she struggles to talk about her emotions. Pt describes herself as well defended and shared it is hard for her to identify and verbalize emotions. Pt reports belief this came from her mother and upbringing. Pt shared her mother was not an emotional person and her family often avoided emotional situations like funerals. Pt identified her treatment goals as I want to get yanira out of life and learning how to feel and talk about her emotions. Pt has had therapy in the past and found it helpful. Pt able to identify times in life she has felt yanira which were times where pt was out of control. Pt used to enjoy volunteering for political causes and connecting with like-minded people. Pt and her moved to [facility] and pt having a hard time finding things she enjoys. Pt reports her relationship with her has a lot of resentment. Pt shared she may want to work on how to cope with this relationship in future sessions. Risks/Concerns:: Pt denies any active SI, plan, or intent as of 10/11/22. Pt is future oriented. Progress Toward Goals/Plan:: Pt's first week of IOP tx. Pt reports her first week went fine and that group therapy is new to her. Pt endorses a depressed mood, anhedonia, lack of motivation, lack of energy, irritability, worth lessness, passive thoughts of , and no yanira in life. Pt reports stressors with being a caregiver and within her marriage. Pt will continue IOP tx to prevent decompensation, improve overall functioning, and gain healthy coping skills. Time Stopped:: 13:05
--- NOTE | 2022-10-11 15:11 | BH.MTP ---
[facility] Treatment Plan - Patient Information Program Physician:: Dr. Sarah Castellon Primary Therapist:: Gianna GIRALDO - Psychiatric Diagnoses Psychiatric Diagnoses:: Major depressive disorder, recurrent, severe without psychosis F 33.2; Generalized anxiety disorder Diagnosis Code(s):: F 33.2 - Estimated LOS Estimated LOS (in weeks):: 6 Problem/Goal #1 - Problem/Goal #1 Stated Goal:: Pt will decrease depressive symptoms, anhedonia, low motivation, survival ambivalence, and isolation. Description of Barriers: Pt reports interpersonal relationship stressors, difficulty identifying and feeling her emotions, and a hard time being vulnerable with people. 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 Functional Impact: Pt is a 72-year-old female with a history of depression. Pt referred herself to [facility] tx due to worsening mental health symptoms that is impacting her functioning. At admission, pt reported decompensation over the past 4 months with low energy, lack of motivation, poor focus, poor concentration, hopelessness, and isolation. Pt also admits to survival ambivalence and pt reports finding no yanira in life. Pt reported difficulty completing ADLs and increased irritability. At admission, pt's symptoms are impacting her social, familial, and daily functioning. Goal Relevant Strengths/Supports: Pt is intelligent, motivated, and has outpatient psychiatry. - Objectives Objective #1 Stated Objective: Pt will learn and utilize 2-3 healthy coping strategies to better manage depressive symptoms as shown by a reduced DSM-5 scores for depression and SI. Interventions: Through group and individual sessions, therapist will help pt identify triggers and warning signs of depression and emotional dysregulation including emotional, physical, and behavioral changes. Therapist will teach pt various coping skills to manage her symptoms and give pt tangible resources to use to regulate emotions. Therapist will use cognitive restructuring techniques and help pt gain awareness of negative thoughts that reinforce guilt and depression. Therapist will provide psychoeducation on maintenance cycles and help pt learn ways to break unhealthy maintenance cycles. Therapist will help pt incorporate behavioral activation and assist pt in setting SMART goals. Discharge Criteria: Pt will have met this goal when can report learning and using at least 2 coping skills to manage depressive symptoms. Additionally, pt will have met this goal when depressive symptoms and SI have reduced on the DSM-5 scale. Target Date: 11/19/22 Review Date: 10/29/22 Status: open Objective #2 Stated Objective: Pt will reduce anhedonia and isolation by identifying 2-3 hobbies or activities pt would benefit from in her community. Interventions: Therapist will utilize CBT techniques to provide psychoeducation on maintenance cycles, behavioral activation, and negative thinking patterns. Therapist will help pt explore old interests and help pt set goals to engage in new hobbies. Therapist will use motivational interviewing and thought challenging when needed. Discharge Criteria: Pt will have met with this goal when pt can report at least two hobbies she could participate in and schedule to begin this hobby. Target Date: 11/19/22 Review Date: 10/29/22 Status: open Problem/Goal #2 - Problem/Goal #2 Stated Goal:: Pt will reduce anxiety, irritability, and rumination while increasing ability to function on daily basis Description of Barriers: Pt reports interpersonal relationship stressors, difficulty identifying and feeling her emotions, and a hard time being vulnerable with people. 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 Functional Impact: Pt is a 72-year-old female with a history of depression. Pt referred herself to [facility] tx due to worsening mental health symptoms that is impacting her functioning. At admission, pt reported decompensation over the past 4 months with low energy, lack of motivation, poor focus, poor concentration, hopelessness, and isolation. Pt also admits to survival ambivalence and pt reports finding no yanira in life. Pt reported difficulty completing ADLs and increased irritability. At admission, pt's symptoms are impacting her social, familial, and daily functioning. Goal Relevant Strengths/Supports: Pt is intelligent, motivated, and has outpatient psychiatry. - Objectives Objective #1 Stated Objective: Pt will identify 2-3 anxiety triggers and 2 coping skills to use when feeling anxious to manage anxiety as shown by decreasing DSM-5 scores for anxiety. Interventions: Therapist will provide education on anxiety, avoidance behaviors, and maintenance cycles. Therapist will help pt explore personal symptoms and warning signs of anxiety. Therapist will teach pt coping skills to improve emotional regulation, mindfulness, and distress tolerance to help pt cope with anxiety in the moment. Discharge Criteria: Pt will have accomplished this goal when can identify at least 2 triggers and report using 2 coping skills to manage anxiety. Additionally, pt will have accomplished this goal when DSM-5 scores show a reduction for anxiety. Target Date: 11/19/22 Review Date: 10/29/22 Status: open Objective #2 Stated Objective: Pt will reduce anxiety and feelings of being overwhelmed and increase structure by accomplishing 2-3 small self-care goals a week. Interventions: Through group and individual sessions, pt will learn how to set small SMART goals to promote self-care and stress management. Therapist will provide education on stress and teach pt effective stress management strategies. Discharge Criteria: Pt will have accomplished this goal when can report accomplishing at least two small goals a week. Target Date: 11/19/22 Review Date: 10/29/22 Status: open
--- NOTE | 2022-10-11 15:17 | BH.PSA ---
Source of Information - Presenting Problems/Circumstances Problems, Referral Source, Mental Status, Client: Pt is a 72-year-old female with a history of depression. Pt referred herself to [facility] tx due to worsening mental health symptoms that is impacting her functioning. At admission, pt reported decompensation over the past 4 months with low energy, lack of motivation, poor focus, poor concentration, hopelessness, and isolation. Pt also admits to survival ambivalence and pt reports finding no yanira in life. Pt reported difficulty completing ADLs and increased irritability. At admission, pt's symptoms are impacting her social, familial, and daily functioning. Psychiatric Presentation - Psych Issues & Need for Admission Psychiatric Issues:: Major depressive disorder, recurrent, severe without psychosis F 33.2; Generalized anxiety disorder Past Psychiatric History - Treatment Hx Treatment History: Pt sees Dr. Martinez for medication since 2018. No counseling since 2018 but would like to go back to it as it has been helpful in the past. She was first depressed in her teenage years and took her first psychiatric medications while in her 40s. She saw a counselor one time when she was in graduate school. Then saw psychiatrist in the late 1980s until moving to [place] in 2018. She has never been admitted to the hospital for psychiatric admissions and no suicide attempts. She took Prozac in the past and is not sure if she took any other medications. First hospitalization:: n/a Most recent hospitalization:: n/a Medication Trials:: Yes ECT Therapy:: No Age of first mental health symptoms: See tx history Describe (age, circumstance, etc) any past hospitalizations: pt has no previous hospitalizations. Current providers for mental health treatment (counselor, psychiatrist, machine adjuster leader case trim, etc.): Dr. Martinez for medication management. Does not have a therapist. Development & Family of Origin - Childhood Significant Childhood Events: Pts father was big in the corporate world so pt and her family moved around very frequently throughout her childhood. Pt shared this made it difficult for pt to connect with peers and pt felt constantly like she did not fit in. Pt shared her mother was highly judgmental of pt which pushed pt to excel at school and strive for perfection to get her mother's approval. - Family Who currently lives in your home?: Pt lives with her and their cats. Describe family composition:: Pt is and lives in a house in [place] with her who she is currently taking care of. They have a son and a daughter who are now 35 and 37 years old respectively. Pt was the oldest of five children and she is not close with any of her surviving siblings. One of pt's brothers at 24 from cancer. Pt's father is and pt's mother has Alzheimer's and is in a mcc. - Family History Family Hx of Psychiatric or AOD Problems: Mother has history of depression. Several distant cousins on her father side of the family who pt thinks have autism. No completed suicides in the family. No substance issues known in the family. Pt's son is diagnosed with bipolar disorder. Ethnicity - Culture Do you identify yourself with any particular cultural, ethnic background, or community?: No - Sexuality Sexual Orientation: Heterosexual Spirituality - Yarsani Do you currently identify with any organized restoration?: None - Beliefs Is there a particular form of support from this community you can use for your recovery?: No Mental Status - Memory Recent Memory: Good Remote Memory: Good - Concentration Concentration: Good - Eye Contact Eye Contact: Good - Speech Speech: Soft - Thought Process Thought Process: Ruminations Insight: Fair Judgment: Fair Behavior: Normal - Orientation Orientation: Time, Person, Place, Situation - Appearance Appearance: Appropriate - Mood Mood: Depressed, Irritable - Affect Affect: Constricted Suicide Assessment - Suicidal Ideation Have you ever felt like hurting yourself?: Yes Please explain:: Pt reports passive thoughts of currently, but no report of suicidal ideations. No history of attempts. Were you using ETOH/drugs at the time?: No Suicidal Intentional Rating Scale (SIRS): Current suicidal thoughts/No plan/Contracts for safety Physician Notification: If Active suicidal thoughts/Will not contract for safety is checked, contact physician and document in the Physician Notification section below. Violent Behavior/Abuse History - Homicidal Ideation Do you have any homicidal thoughts? If so, explain:: No Is there a known potential victim? If yes, who:: No - Abuse Have you ever been abused?: No Please explain:: Pt did not report having trauma, but based on pt's history, pt likely experienced multiple adverse experiences as a child. Pt moved around frequently as a child, reported her mother was very critical and had high expectations, and pt did not see her father very much. Pt shared her family did not show affection or emotions. - Life Events Are there any other significant life events?: , Hardships, Family illness Describe significant life events: Pt is the primary caregiver for her and she cares for her mother as well. Pt's son has bipolar disorder and he has struggled to function independently. Pt has limited social support since moving to [place] and the pandemic. - Safety Do you ever feel threatened in your home? If yes, describe:: No Adult Social History - Age 20 to Present Describe your current support system:: Pt reports very limited support. Pt has been wanting to get involved in volunteering groups in [place], but has not yet. Substance Use - Substance Substance Use Type: Alcohol, Caffeine - Specific Drugs What specific drugs have you used?: She drinks 1 to 2 glasses of wine with dinner and occasionally has a whiskey night But has been tapering off alcohol as she is losing interest in drinking. She denies any rehab in anything or any other drug use or any other heavier drinking. She denies blacking out, morning drinking or symptoms of withdrawal ever. Denies any nicotine or marijuana or other illicit drug use. Leisure/Social Activities - Interests What do you enjoy or might be interested in learning about?: Pt is interested in volunteering. Pt used to be active in the [employer]. Education & Occupational Histo - Education What is your level of education?: Doctorate Degree - 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 If yes, describe:: No - Court Orders Have you had any past court orders for psychiatric treatment?: No Do you have a present court order for psychiatric treatment?: No Problem Checklist - Current Problem Areas Problem List: Nutritional/Eating pattern changes, Depressed mood/sad, Anxiety, Anger/aggression, Inattention, Substance use, Sleep problems, Pertinent health issues - Hypertension, elevated cholesterol, osteopenia, Additional psychosocial stressors Discharge Planning Needs - Anticipated Follow-Up Private Therapist/Psychiatrist:: Dr. Martinez- Psychiatrist [facility] Assessment - Client's Needs What are the client's strengths?: Pt is intelligent, motivated, and has outpatient psychiatry. Diagnoses - Diagnoses Diagnosis #1:: Major depressive disorder, recurrent, severe without psychosis F 33.2 Diagnosis #2:: KERRIE Interpretive Summary - Interpretive Summary Interpretive Summary: Pt is a 72-year-old female with a history of depression who referred herself to [facility]. Pt referred herself because over the last year or so she has had worsening symptoms of depression that have been making it difficult for her to function and have impacted the quality of her life. She feels she has to devote energy into putting a life together in [place]. 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 Part of the reason she retired is because her father and brother both at age 62 of throat cancer and some other kind of cancer respectively. Her then lost his job in [place] when the Pt was 54 years old he did not get a new job in [place] and [place] specifically was too expensive to live for them without the Pt working so they moved to [place] in 2018. In addition Pt's mother was placed into a mcc for dementia in 2018 and that is part of the reason she moved back to [place]. She had a brother in [place] but the same day she moved to [place] he moved to [place] per pt?s report. She has no other people she knows in [place] and feels no support in [place]. 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 COVID pandemic in 2020 worsened her situation as it further isolated pt and prevented pt from engaging in social hobbies. Her had a triple bypass in 2019 and he has hypertension, gastroparesis, diabetes insipidus and broke his right shoulder after falling down while drunk. Pt reports she drinks every night, but pt denies that she has a drinking problem. Pt has never been to [facility] but knows about the resource. Her biggest stress now she states is her who is 68 years old and has numerous health problems. is unable to drive so she has to constantly drive him to doctor appointments in [place]) and cooks for him and shops for him and drives him everywhere. Pt wants to socialize, volunteer and likes to be politically active but does not have the energy and possibly does not have the time to do this. She has been isolating herself due to feeling down and sad. She has anhedonia, decreased appetite, lack of motivation and low energy which makes it difficult to get out of bed. She denies panic attacks and denies any history of self-harm. She drinks 2 cups of coffee daily. She sleeps around 7 hours a night but will would stay in bed until noon if she could but has to get out of bed to take care of her . Concentration is decreased although she is able to enjoy reading a book when she gets time. She admits to passive thoughts of and endorses hopelessness and worthlessness. She is a worrier by nature but denies panic attacks. She denies guilt, suicidal ideation, homicidal ideation, hallucinations, delusions or symptoms of janet ever. She denies eating disorder, PTSD, trauma or seizure or head trauma. Treatment Plan Recommendations - Recommendations Guidelines: Special needs identified to be included in the development of an individualized treatment plan regarding past psychiatric history and treatment, developmental events, family relationships/events/culture, past and/or current educational, occupational, social, and residential experience, and legal status. Recommendations:: Pt will start IOP as the structure, support, education and group therapy will hopefully prevent worsening of the pt?s symptoms that might require hospitalization. She felt safe during the interview and if it anytime she does not feel safe she will let us know or go to the emergency room. Pt understands that she will continue counseling after the IOP program and understands the need to limit her alcohol use. Pt has outpatient psychiatry, but no counseling.
--- NOTE | 2022-10-15 09:10 | BH.SGPN.GN ---
Behaviors/Verbalizations/Mental Status: [] Eye contact is good. Motor activity is appropriate. Appearance is casual. Speech is Appropriate. Mood is anxious/irritable. Affect is congruent. Thoughts are linear and logical. No evidence of psychosis. Reviewed daily check in sheet and 1/5 for suicidal ideations and 0/5 for intent. Client Response/Progress/Benefit: [] Pt participated at times. Attentive. Emotion for today is ?detached and irritable?. ?Daily symptom tracker notes 3/5 for depression and 2/5 for agitation. She could not identify any wins stating, ?but I have a lot of stressors?. Her son was scheduled to come to [place] for Thanksgiving giving however cancelled at the last minute. There does not appear to a specific reason other than he just changed his mind. Pt reports that in the past she would make a traditional meal however w/o her son and her ?s ?gastro? issues she instead is just going to make something else. Despite this stressor she focused a great deal on her distress with the cleanliness of her house. The clutter has prevented her from cleaning thoroughly. This impacts her mental health. Group provided some feedback, and she reports wanting to hire a professional overhead cleaner maintainer to come and remove the clutter so she can begin to clean herself more routinely. Benefited from group support, encouragement, and feedback. Will continue in IOP to prevent decompensation, stabilize mood, and improve functioning. Narrative Note: []
--- NOTE | 2022-10-15 10:10 | BH.SGPN.GN ---
Behaviors/Verbalizations/Mental Status: []Eye contact is good. Motor activity is appropriate. Appearance is casual. Speech is Appropriate. Mood is depressed. Affect is flat. Thoughts are linear and logical. No evidence of psychosis. Client Response/Progress/Benefit: []Pt participated at times during the group discussions. Attentive during psychoeducation AEB note-taking and providing input when prompted. Participated in interactive discussion amongst peers on the definition and examples of crisis, stating that for her ?crisis is having something to accomplish but being unable to due to something else getting in the way. Engaged in conversations as peers identified unhealthy responses to crisis which included; substance use, avoidance, isolation, sleeping, risky behaviors, denial, etc. Pt identified her nehemiah signs to crisis which included ?intentionally being rude or making jokes about people because she finds it funny in the moment. Benefited from increased awareness of crisis and personal warning signs. Will continue in IOP to prevent decompensation, stabilize mood, and increase healthy coping. Narrative Note: []
--- NOTE | 2022-10-15 11:10 | BH.SGPN.GN ---
Behaviors/Verbalizations/Mental Status: []Client alert and oriented, casually dressed and groomed. Eye contact fair. Motor activity appropriate. Speech within normal limits. Affect constricted. Mood dysthymic. Thoughts linear, logical, no signs of hallucinations or delusions. Client Response/Progress/Benefit: []Client responded well to session as evidenced by client listening attentively to others and providing strategies during discussion. Client identified her warning signs for crisis and gained further awareness of earliest warning signs. Client created a crisis action plan to help client better manage warning signs for crisis. Client?s action plan for rudeness included: being aware humor is often hurtful, saying things with tact, THINK acronym, and opposite action. Client appeared to benefit from creating a crisis action plan and increasing self-awareness. Client to continue IOP to increase healthy coping skills, challenge distorted thoughts, and prevent decompensation.
--- NOTE | 2022-10-16 09:05 | BH.SGPN.GN ---
Behaviors/Verbalizations/Mental Status: []Pt eye contact fair, casually dressed, motor activity appropriate, speech normal rate and tone, mood dysthymic, constricted affect, thoughts linear and intact, no evidence of delusions or hallucinations. Reviewed daily check in sheet and no reports of suicidal ideations or intent. Client Response/Progress/Benefit: []Client responded well to session AEB listening attentively to others and sharing thoughts and feelings. Client initially stated she doesn't have any wins to share. Client eventually reported coming to IOP as a mental health win. Client stated additional positive was going to visit her mom at the skilled nursing yesterday. Client reported it can be stressful to be there because her mom has dementia but is glad she pushed herself to go visit. Client reported stressor as the holidays because she doesn't have any family local and has limited support in the area due to moving to [place] at the height of the pandemic. Client stated she has thought it could be helpful to volunteer during the holidays but stated it's too late now. Therapist encouraged her to look at volunteer options for holidays next month. Client to continue IOP to improve daily functioning, challenge distorted thoughts, and prevent decompensation. Narrative Note: []
--- NOTE | 2022-10-16 10:15 | BH.SGPN.GN ---
Behaviors/Verbalizations/Mental Status: [] Eye contact is good. Motor activity is appropriate. Appearance is casual. Speech is Appropriate. Mood is euthymic. Affect is full. Thoughts are linear and logical. No evidence of psychosis. Client Response/Progress/Benefit: [] Pt was an active participant in group discussions and experiential activity. Attentive during psychoeducation on resiliency. Participated in interactive discussion with peers on the definition of resiliency and where it comes from. Group identified that resiliency can be the result of; past experiences, learned behaviors, and observations of others. Group also worked together to identify the benefits of being resiliency and how it is related to mental health. Able to relate experiential activity of group juggle to topics of resiliency. Worked well with peers in small group in which they identified factors that contribute to resiliency.Benefited from increased awareness of resilience and the factors that contribute to building resiliency. Will continue in IOP to prevent decompensation, increase healthy coping, and improve functioning. Narrative Note: []
--- NOTE | 2022-10-16 11:15 | BH.SGPN.GN ---
Behaviors/Verbalizations/Mental Status: []Client alert and oriented, casually dressed and groomed. Eye contact fair. Motor activity appropriate. Speech within normal limits. Affect constricted, mood depressed. Thoughts linear, logical, no signs of hallucinations or delusions. Client Response/Progress/Benefit: []Pt responded well to session AEB completing the resilience worksheet provided. Pt participated in the discussion and worked cooperatively with group to identify strategies to enhance each of the components discussed. Pt reports belief they already use resilience trait of??keeping things in perspective.??Pt stated she would like to continue to develop resilience trait of ?self-awareness? to gain more insight to her emotions. Pt seemed to benefit from discussing strategies for improving personal resilience and identifying resilience traits pt already possesses. Will continue IOP tx to prevent decompensation, reduce negative self-talk, and improve daily functioning. ? Narrative Note: []
--- NOTE | 2022-10-18 09:05 | BH.SGPN.GN ---
Behaviors/Verbalizations/Mental Status: []Eye contact good, casually dressed, motor activity appropriate, speech normal rate and tone, mood angry and depressed, congruent constricted, thoughts linear and logical, no evidence of delusions or hallucinations. Reviewed pt's symptom tracker, suicidal ideation within pt baseline, denies any current plan, or intent as of this date 10/18/22. Client Response/Progress/Benefit: [] Pt responded well to session, attentive and receptive to feedback. Pt reports feeling angry this morning with her as they had Thanksgiving plans, but pt's slept until 7:00pm. Pt processed her frustrations and resentment with her , who pt reports is an alcoholic. Pt stated because she has so much resentment, it is hard for her to have empathy for her 's physical health issues. The group provided emotional validation and helped pt see that she is human for feeling this way which pt appeared to benefit from. Pt's mental health wins today include getting to IOP and not lashing out at her last night. Pt will continue IOP tx to prevent decompensation, increase healthy coping skills, and reduce negative self-talk. Narrative Note: []
--- NOTE | 2022-10-18 12:00 | BH.MDN ---
Multi-Disciplinary Note - Note 45-min Individual Time Started:: 10:20 Date: 10/18/22 Purpose of session/treatment goals addressed:: To work on goal #1 of pt's tx plan with focus on maintenance cycles and cognitive distortions. Eye Contact:: Good Motor Activity:: Appropriate Appearance:: Casual Speech:: Appropriate Mood:: Dysthymic Affect:: Flat Thoughts:: Linear, Logical, No evidence of hallucinations/delusions noted Staff Interventions:: thought challenging, psychoeducation on: - maintenance cycles, CBT techniques, strengths perspective, other - discussed self-compassion and the benefits it has in reframing negative thinking. Client Response:: Pt responded well to session, open to meeting with therapist. Pt shared some worry and ruminations about what she has shared in group about her her who is an alcoholic. Processed pt's emotions, validated them, and pt was reminded that all experiences are valid. Pt receptive to learning about cognitive distortions and maintenance cycles as pt has been ruminating and pt has shared she is highly self-critical. Pt able to give examples of her own maintenance cycles for depression. Some of pt's negative thoughts included no one will be attracted to me so why leave and no one will love me. Pt shared when she thinks this way she isolates, withdraws, and cancels plans with family. Pt able to see how these creates a self-fulling prophecy and reinforces depression. Pt identified distortions she connects with the most which included disqualifying the positives, jumping to conclusions, and all or nothing thinking. Pt encouraged to begin paying attention to her thinking patterns to see if she notices any distortions. Pt also given the self-compassion book to begin reading. Risks/Concerns:: Pt continues to have survival ambivalence, but pt denies any suicidal ideations. Pt denies any plan or intent. Future oriented. Progress Toward Goals/Plan:: Pt is making progress towards her tx goals AEB her consistent attendance and increased engagement in group discussions. Pt reports learning more about her mental health and is gaining awareness of distortions. Pt continues to endorse a depressed mood, ruminations, survival ambivalence, anhedonia, negative self-talk, and worthlessness. Pt is gaining more interest in engaging in activities that could bring yanira which is progress. Pt will continue IOP tx to prevent decompensation, increase ability to manage symptoms, and reduce negative self-talk. Time Stopped:: 11:00
--- NOTE | 2022-10-22 09:05 | BH.SGPN.GN ---
Behaviors/Verbalizations/Mental Status: [] Eye contact is good. Motor activity is appropriate. Appearance is casual. Speech is Appropriate. Mood is euthymic. Affect is congruent. Thoughts are linear and logical. No evidence of psychosis. Reviewed daily check in sheet and pt reports 1/5 for suicidal thoughts and 0/5 for intent. Client Response/Progress/Benefit: [] Pt was an active participant in group discussions. Attentive. Daily symptom tracker notes 3/5 for anxiety and 2/5 for agitation. Emotion for today is ?copasetic?. Mental health wins include completing self-care and setting boundaries. She elaborated more on these and how they benefited her mental health. Reports improved mood and motivation stating, ?I?m planning ahead more?. Gave example of going to the grocery store to shop for the week. Also has goal to organize her bills which have been a source of stress, which she has chosen to avoid. Benefited from group support, encouragement, and feedback. Will continue in IOP to prevent decompensation, increase healthy coping, and improve functioning. Narrative Note: []
--- NOTE | 2022-10-22 10:00 | BH.SGPN.GN ---
Behaviors/Verbalizations/Mental Status: []Pt alert and oriented, casually dressed and groomed. Eye contact good. Motor activity appropriate. Speech within normal limits. Affect constricted, mood anxious and euthymic. Thoughts linear, logical, no signs of hallucinations or delusions. Client Response/Progress/Benefit: []Pt was an active participant AEB contributing to discussion, taking notes, and engaging in group activity. Connected with the topic of pitfalls and listened to group discussion on barriers that prevent from choosing a healthier path to mental wellness. Group worked together to identify examples of personal pitfalls which included; not setting boundaries, using unhealthy coping skills, and procrastination. Pt did well in the group activity, able to make connections to how lack of communication and awareness make it nearly impossible to overcome pitfalls. Pt shared wanting to avoid responsibility during the activity, but she challenged herself to be active. Pt benefited from group as pt learned to better identify potential barriers to improving mental health symptoms. Pt will continue IOP tx to improve daily functioning, reduce negative self-talk, and improve self-care. Narrative Note: []
--- NOTE | 2022-10-22 11:00 | BH.SGPN.GN ---
Behaviors/Verbalizations/Mental Status: []Pt alert and oriented, neatly dressed and groomed. Eye contact good. Motor activity appropriate. Speech within normal limits. Affect constricted, mood euthymic. Thoughts linear, logical, no signs of hallucinations or delusions. Client Response/Progress/Benefit: []Pt receptive of session, engaged throughout AEB pt actively listening and contributing to discussion, as well as taking notes.? Pt participated in the experiential activity and did well to communicate ideas with peers and manage emotions. Pt and group processed how the emotions and perspective of the group impacted the activity. Group worked together to identify different coping skills to help manage pitfalls. Pt identified pitfalls they struggle with such as lack of boundaries, avoidance of awareness, and lack of self-care. ?Pt plans to work on these pitfalls by identifying the boundaries she wants to set and using opposite action. Benefited from identifying personal pitfalls and strategies to overcome these pitfalls. Will continue IOP tx to promote use of healthy coping skills, combat distorted thinking, and reduce isolation. Narrative Note: []
--- NOTE | 2022-10-23 09:00 | BH.SGPN.GN ---
Behaviors/Verbalizations/Mental Status: []Eye contact good, casually dressed, motor activity appropriate, speech normal rate and tone, mood anxious and dysthymic, congruent affect, thoughts linear and intact, no evidence of delusions or hallucinations. Reviewed pt's symptom tracker, suicidal ideation within pt baseline, denies any current plan, or intent as of this date 10/23/22. Client Response/Progress/Benefit: []Pt responded well to session, attentive and willing to share with the group. Pt reports feeling ?worried this morning. Expressed this may in part be due to an upcoming dermatology procedure as well as continued stress related to caregiving for her mother who has dementia. Discussed trying to engage in small self-care opportunities, such as listening to a podcast she enjoys on her drive to visit her mother. Identified current mental health wins as getting to group this morning despite being tempted to sleep-in, as well as sending out her [employer] cards which she had been putting off. Pt appeared to benefit from supportive feedback and reflecting on mental health wins, as well as skills she can use to increase self-care opportunities during the day. Pt to continue IOP tx to further improve consistent healthy coping implementation, improve mood stability, and prevent decompensation. Narrative Note: []
--- NOTE | 2022-10-23 10:10 | BH.SGPN.GN ---
Behaviors/Verbalizations/Mental Status: []Pt alert and oriented, neatly dressed and groomed. Eye contact good. Motor activity appropriate. Speech within normal limits. Affect constricted, mood content. Thoughts linear, logical, no signs of hallucinations or delusions. Client Response/Progress/Benefit: []Pt participated at times during group discussions. Attentive during psychoeducation on communication styles. Participated during interactive discussion on obstacles to effective communication which included; giving the silent treatment, assumptions, and communicating through behaviors. Pt was placed in small group and was engaged in identifying benefits and consequences of each communication style. 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 Pt can see how being passive causes resentment and more depression. Benefited from increased understanding of communication styles and the impact they have on mental wellness. Will continue in IOP to promote mood stability, increase self-compassion, and reduce isolation. Narrative Note: []
--- NOTE | 2022-10-23 12:04 | PCM.BH.PN ---
Progress Note Progress Note: History of Present Illness/Interim History: [] The patient is a 72-year-old female with her history of depression who is seen in follow-up at the [facility] health IOP program. I last saw the patient 2 weeks ago and at that time Wellbutrin XL was added to help with her depression. The patient states that she is doing fine. Due to insurance issues she stopped the BuSpar at the same time she started the Wellbutrin but plans to restart the BuSpar as soon as the insurance issues are straightened out. She feels she is learning valuable skills in the program and although it is a stretch for her she feels that she may learn things that are of value to her. She feels like she might feel a little happier and does find it a little easier to get out of bed since starting the Wellbutrin. She is getting more done during the day also but she is not sure if this is just because the program makes her get up earlier orts the medication. According to the staff the patient has been consistent in attendance and engaged in the program and is has made progress. The patient enjoys the social supports she gets at the [facility]. Her appetite is a little better and her energy level is a little improved. She feels that she has less hopelessness and maybe not complete hopelessness now. She does still endorse feeling worthless. She is not enjoying much that she does except coming to the IOP program she is enjoying. She admits to passive thoughts of still. She denies suicidal ideation, plan for suicide, homicidal ideation, hallucinations, delusions. Current Psychiatric Medications: [] Cymbalta 60 mg p.o. daily (x5 to 10 years); Wellbutrin XL 150 mg p.o. every morning (x2 weeks now); BuSpar of uncertain dose possibly 15 mg daily Mental Status Examination: [] The patient is a 72-year-old female who appears normal for stated age and is casually dressed and groomed with good hygiene. She is ambulatory with a normal gait and has no psychomotor agitation or retardation. She is cooperative and pleasant during the interview. Eye contact is good and speech is normal rate and rhythm and fluent with no pressure. Mood is depressed. Affect is mildly constricted to full and normal at times. Thought process is goal-directed and organized. Thought content: There is evidence of passive thoughts of . The patient feels less hopeless than she did 2 weeks ago. There is no evidence of suicidal ideation, plan for suicide, homicidal ideation, hallucinations or delusions. Reality testing is intact. Impulsivity is low. Intelligence is above average. Judgment judgment is intact. Insight is fair to good. Diagnoses: [] 1. Major depressive disorder, recurrent, severe without psychosis 2. Generalized anxiety disorder 3. Primary support issues Plan: [] The patient will continue the IOP program at [facility] as the structure, support, education and group therapy will hopefully prevent worsening of the patient's symptoms. She felt safe during the interview and if it anytime she does not feel safe she will let us know or go to the emergency room. The risk, options, possible complications and side effects of the medications were again discussed with the patient and she understands and accepts these. No medication changes were made today. The patient understands that she should continue to get benefit from the Wellbutrin for weeks. I will see the patient in follow-up in 2 weeks and she will continue to follow-up with her outpatient medical and psychiatric providers. Prescription refill was given for her Wellbutrin XL, 150 mg p.o. every morning, #90 with 1 refill.
== END 2022-10-23 23:59 ==
LOC: BHIOP 08:00
PROVIDERS: PCP Family Medicine; Visit Provider Psychiatry & Neurology Psychiatry
DX: F33.2 Major depressive disorder, recurrent severe without psychotic features (principal); F41.1 Generalized anxiety disorder
CPT/HCPCS: S9480; 90834; 90853

== ENCOUNTER 2022-10-24 08:21 | Outpatient (RCR) | payer MEDICARE, OTHER, SELFPAY ==
[2022-10-24 00:42] VITALS: BP 148/99; PULSE 83
--- NOTE | 2022-10-25 09:00 | BH.SGPN.GN ---
Behaviors/Verbalizations/Mental Status: []Pt alert and oriented, neatly dressed and groomed. Eye contact good. Motor activity appropriate. Speech within normal limits. Affect constricted, mood dysthymic. Thoughts linear, logical, no signs of hallucinations or delusions. Reviewed pt?s symptom tracker, no risk for suicidal ideation, plan, or intent as of 10/25/22 Client Response/Progress/Benefit: [] Pt responded well to session, attentive and engaged. Pt reports feeling tired this morning as pt feels her life lately has been same old same old. Pt shared she has not quite bought in to opposite action, but she has been using it and she has been following through with more things. Pt scheduled two appointments yesterday and she visited her mother which pt did not want to do, but she is glad she did it. Pt continues to struggle with feeling overwhelmed by her to-do list which makes pt want to shut down. Pt receptive to working on setting smaller goals in individual session. Pt appeared to benefit from connecting with peers and reflecting on her application of coping skills. Pt will continue IOP tx to increase mood stability, reduce avoidance, and improve self-compassion. Narrative Note: []
--- NOTE | 2022-10-25 10:15 | BH.SGPN.GN ---
Behaviors/Verbalizations/Mental Status: [] Eye contact is good. Motor activity is appropriate. Appearance is casual. Speech is Appropriate. Mood is euthymic. Affect is congruent. Thoughts are linear and logical. No evidence of psychosis. Client Response/Progress/Benefit: [] Pt was an active participant in group discussions and activities. Attentive during psychoeducation. Pt participated during interactive discussion in which the group defined self-care and discussed its benefits. Worked with peers to identify myths related to self-care which included; Self-care is expensive and lavish, self-care is just personal hygiene, self-care means I'm not being productive, self-care should be fun, self-care is too time consuming. Pt participated in small groups where they worked to bust these self-care myths. Pt did well to relate experiential activity to the topic of self-care and its benefit to mental health. Benefited from increased awareness of self-care, its benefits, and the consequences of not utilizing self-care strategies. Will continue in IOP to prevent decompensation, increase healthy coping, and improve functioning. Narrative Note: []
--- NOTE | 2022-10-25 11:15 | BH.SGPN.GN ---
Behaviors/Verbalizations/Mental Status: []Pt alert and oriented, casually dressed and groomed. Eye contact good. Motor activity appropriate. Speech within normal limits. Affect congruent, mood anxious and depressed. Thoughts linear, logical, no signs of hallucinations or delusions. Client Response/Progress/Benefit: []Pt engaged participant AEB completing self-assessment worksheet and providing input throughout discussion. Participated in group discussion on the various areas of self-care. Pt completed worksheet identifying current self-care practices and what self-care activities pt wants to start using. Pt selected spiritual and physical self-care to begin practicing more consistently. Pt plans to do this by challenging herself to begin practicing yoga. Appeared to benefit from completing the self-care evaluation and gaining insights into current self-care practices, as well as identifying areas in which he would like to improve upon. Will continue IOP tx to prevent decompensation, improve boundaries with supports, and improve ability to maintain mood stability. Narrative Note: []
--- NOTE | 2022-10-25 14:07 | BH.MDN ---
Multi-Disciplinary Note - Note 30-min Individual Time Started:: 12:10 Date: 10/25/22 Purpose of session/treatment goals addressed:: To review pt's progress with homework from last week and to set goals to increase behavioral activation. Eye Contact:: Good Motor Activity:: Appropriate Appearance:: Neat Speech:: Appropriate Mood:: Other - content Affect:: Congruent Thoughts:: Linear, Logical, No evidence of hallucinations/delusions noted Staff Interventions:: thought challenging, motivational interviewing, psychoeducation on: - self-compassion pillars, strengths perspective, goal setting - discussed behavioral activation goals which included walking and setting small goals around the house. Client Response:: Pt responded well to session, open to meeting with therapist. 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 Pt stated she wants to join a gym, but does not think she will be able to until IOP is done for pt. Discussed setting small goals and pt willing to walk to group one of the days she attends next week. Pt has also been reading the self-compassion book and she has been trying to smile more and hug my mom to increase oxytocin levels. Pt still struggles with challenging negative thoughts and pt feels that she never does enough. However, pt continues to be receptive to setting goals and using opposite action. Pt will also be exploring volunteering at a food bank, but pt admits that she struggles with procrastinating. Pt receptive to weekly check-ins with her goals to promote follow through. Risks/Concerns:: Pt denies any suicidal ideations, plan, or intent as of 10/25/22. Progress Toward Goals/Plan:: Pt is responding well to tx as pt is consistent with attendance and has increased engagement in sessions. Pt continues to be self-critical and disqualifies her positives, but she is becoming more receptive to thought challenging. Pt also reports lack of motivations still, ruminations, and difficulty functioning at home. Pt is encouraged to walk to group one day next week as part of her weekly goal. Pt will continue IOP tx to prevent decompensation, improve self-compassion, and reduce avoidance. Time Stopped:: 12:45
--- NOTE | 2022-10-28 14:00 | BH.TPR ---
Treatment Plan Review Date of Admission:: 10/08/22 Date of Treatment Plan Review:: 10/28/22 Admitting Diagnoses:: Major depressive disorder, recurrent, severe without psychosis F 33.2; Generalized anxiety disorder Current Diagnoses:: Major depressive disorder, recurrent, severe without psychosis F 33.2; Generalized anxiety disorder Patient's Response to Treatment:: Pt has responded well to treatment AEB pt consistently attending IOP sessions and reduction of DSM-5 scores by 44% since admission. Pt contributes well during individual sessions and actively contributes during group sessions. Pt applies coping skills outside of IOP and reports overall mood is improving. Status of Current Problems and Symptoms: Pt's biggest stressor continues to be her marriage and lack of support. Pt recognizes that her marriage is a source of resentment, irritability, and lack of motivation. Pt is working on identifying healthy boundaries and setting these. Pt also continues to struggle with lack of energy, avoidance, lack of hobbies, and negative thinking patterns. Problem #1 Problem Name:: Anhedonia, low motivation, survival ambivalence, and isolation. Status of Goals:: Objective 1- partially complete. Pt?s scores for depression have decreased by 25% since admission and she has been learning different coping skills such as opposite action. However, pt continues to struggle with lack of motivation, negative thinking patterns, and worthlessness. Objective 2- in progress. Pt is interested in volunteering, but has not decided where. Team Recommendations:: Treatment team recommends pt continue working on this goal to combat distorted beliefs of self and reduce isolative behaviors. Pt encouraged to practice boundary setting. Pt was also given options for outpatient therapists after IOP discharge. Problem #2 Problem Name:: Anxiety, irritability, and rumination Status of Goals:: Objective 1- complete with ongoing work encouraged. Pt?s DSM-5 scores for anxiety decreased by 60% since admission. Pt?s score for anger and irritability decreased by 75% since admission. Pt is working on reducing her safety behavior of avoidance to further decrease anxiety. Objective 2- in progress. Pt is working on setting boundaries with her to give pt more self-care time. Team Recommendations:: Treatment team recommends pt continue working on this goal to increase healthy boundary setting and application of self-care. Pt was also given options for outpatient therapists after IOP discharge.
--- NOTE | 2022-10-29 09:10 | BH.SGPN.GN ---
Behaviors/Verbalizations/Mental Status: [] Eye contact is good. Motor activity is appropriate. Appearance is casual. Speech is Appropriate. Mood is depressed. Affect is congruent. Thoughts are linear and logical. No evidence of psychosis. Reviewed daily check in sheet and denies any SI. Client Response/Progress/Benefit: [] Pt was an active participant in group discussions. Attentive. Daily symptom tracker notes 3/5 for depression and 2/5 for anxiety. Emotion for today is ?sad? which she states is ?better than being numb which I typically am?. Mental health win was preparing a meal yesterday. Shared how this benefitted her mental health. Dealing with anxiety and sadness related to the health of one of her pets. Group provided support and encouragement which was beneficial. Will continue in IOP to prevent decompensation, increase healthy coping, and improve functioning. Narrative Note: []
--- NOTE | 2022-10-29 10:05 | BH.SGPN.GN ---
Behaviors/Verbalizations/Mental Status: []Pt alert and oriented, casually dressed and groomed. Eye contact good. Motor activity appropriate. Speech within normal limits. Affect congruent, mood dysthymic. Thoughts linear, logical, no signs of hallucinations or delusions. Client Response/Progress/Benefit: []Pt responded well to session AEB contributing some to discussion, taking notes, and listening attentively to others. Group discussed the benefits of managed anger and anger as a secondary emotion. Pt shared perspective on negatives from acting out in anger as long-term resentment and irrationally thinking about stressors.? Pt completed worksheet on anger triggers and personal warning signs of anger. Pt identified their biggest triggers as her opinion not being listened to or respected. Appeared to benefit from increased knowledge of the anger cycle as well as personal triggers. Will continue IOP tx to promote mood stability, further improve healthy boundaries and communication, and reinforce use of healthy coping skills. Narrative Note: []
--- NOTE | 2022-10-29 11:10 | BH.SGPN.GN ---
Behaviors/Verbalizations/Mental Status: []Client alert and oriented, casually dressed and groomed. Eye contact fair. Motor activity appropriate. Speech within normal limits. Affect constricted, mood dysthymic. Thoughts linear, logical, no signs of hallucinations or delusions. Client Response/Progress/Benefit: []Pt was engaged throughout AEB contributing to group discussion and self-reflection. Group finished processing cues to anger worksheet. Pt contributed as group brainstormed healthy coping skills for better managing anger which included: music, walking/exercise, changing the environment, communicating with supports, and journaling. Pt reported he would be willing to start using belly breathing to help manage anger in the moment. Pt appeared to benefit from identifying different techniques to manage anger as well as gaining awareness of potential consequences of unmanaged anger. Will continue IOP tx to increase use of healthy coping, improve confidence,, and prevent decompensation.
--- NOTE | 2022-10-30 09:00 | BH.SGPN.GN ---
Behaviors/Verbalizations/Mental Status: []Pt alert and oriented, neatly dressed and groomed. Eye contact good. Motor activity appropriate. Speech within normal limits. Affect incongruent-smiling and using humor to deflect, mood sad. Thoughts linear, logical, no signs of hallucinations or delusions. Reviewed pt?s symptom tracker, no risk for suicidal ideation, plan, or intent as of 10/30/22 Client Response/Progress/Benefit: [] Pt responded well to session, attentive and engaged. Pt reports feeling sad this morning, but joked that she was so very merry. One of pt's cats is not doing well and is staying at the vet for a few days. Pt shared she is trying to figure out why this cat is so important but she recognizes it is a win that pt is taking care of her cat. Pt reported she is trying to convince herself to start journaling, but pt described herself as the most boring person in the world. Pt was encouraged by peers to journal despite negative thoughts or assumptions. Pt continues to struggle with giving herself credit and following through with her individual goals, but pt is challenging her perspective. Pt will continue IOP tx to promote use of healthy coping skills, reduce negative self-talk, and improve daily functioning. Narrative Note: []
--- NOTE | 2022-10-30 11:10 | BH.SGPN.GN ---
Behaviors/Verbalizations/Mental Status: [] Client alert and oriented, casually dressed and groomed. Eye contact good. Motor activity appropriate. Speech within normal limits. Affect constricted, mood dysthymic. Thoughts linear, logical, no signs of hallucinations or delusions. Client Response/Progress/Benefit: [] Client was an active participant in group discussions and activity. Attentive during psychoeducation. Client along with peers were able to identify several negatives on the picture given to the group. Client and peers also identified positives in the picture and made the connect that finding positives is much more difficult. Interactive discussion on the definition of perspective, how perspective is formed, and why perspective is important in treatment. Client along with peers also identified that perspective can either motivate and encourage treatment or be a barrier to receiving help. Client shared her current perspective is skeptical but open minded. Client reported this perspective has helped her stick with giving IOP a chance and is considering use of skills/strategies when faced with a stressor. Will continue in IOP to increase confidence, increase consistent use of healthy coping and prevent decompensation.
--- NOTE | 2022-10-30 11:16 | BH.SGPN.GN ---
Behaviors/Verbalizations/Mental Status: []Client alert and oriented, casually dressed and groomed. Eye contact good. Motor activity appropriate. Speech within normal limits. Affect congruent, mood dysthymic. Thoughts linear, logical, no signs of hallucinations or delusions Client Response/Progress/Benefit: []Client was attentive and contributed in small and larger group discussion, continues to struggle with disqualifying positives however. Client completed strengths exploration worksheet and identified personal strengths of creativity, humor, patience, and intelligence. With some assistance, Client able to acknowledge how these strengths are helping her and can continue to help client in their mental health journey. Shared wanting to focus on using journaling to reinforce strength of creativity. Benefited from identifying personal strengths and strategies for enhancing use of identified strengths. Client to continue IOP tx to promote use of healthy coping skills, improve mood stability, and prevent decompensation. Narrative Note: []
--- NOTE | 2022-11-01 09:00 | BH.SGPN.GN ---
Behaviors/Verbalizations/Mental Status: []Pt alert and oriented, casually dressed and groomed. Eye contact good. Motor activity appropriate. Speech within normal limits. Affect constricted, mood content. Thoughts linear, logical, no signs of hallucinations or delusions. Reviewed pt?s symptom tracker, no risk for suicidal ideation, plan, or intent as of 11/01/22 Client Response/Progress/Benefit: []pt responded well to session, engaged and attentive. Pt reports feeling optimistic this morning as pt accomplished her goal of walking yesterday. Pt shared she did feel better after the walk, but her feet are a little sore. Pt also set a boundary with her son this morning and pt was vulnerable and mentioned she is getting therapy. Pt's stressor today is feeling worried and slightly frustrated with her son, but pt recognizes that she can only do so much. Pt appeared to benefit from reflecting on her accomplishment of her goal. Pt will continue IOP tx to prevent decompensation, increase application of healthy coping skills, and improve boundary setting. Narrative Note: []
--- NOTE | 2022-11-01 10:05 | BH.SGPN.GN ---
Behaviors/Verbalizations/Mental Status: []Eye contact is good. Motor activity is appropriate. Appearance is casual and grooming tended to. Speech is Appropriate. Mood is dysthymic. Affect is congruent. Thoughts are linear and logical. No evidence of psychosis. Client Response/Progress/Benefit: []Client receptive of session, actively engaged throughout AEB taking notes and providing input and examples to discussion. Appeared to connect with group topic of cognitive distortions and the impact of thought patterns on mental health, coping behaviors, and relationships. Reflected that she personally tends to struggle with distortions of overgeneralization, disqualifying the positives, and fortune telling. 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 So, I might as well not do it?. Client appeared to benefit from gaining insight on distorted thinking patterns and how this impacts overall mental health. Progress noted in client report of improved insight into her own distorted thinking patterns. Will continue IOP tx to maintain mood stability and continue to promote healthy coping, as well as continue to encourage thought challenging. Narrative Note: []
--- NOTE | 2022-11-01 11:10 | BH.SGPN.GN ---
Behaviors/Verbalizations/Mental Status: [] Eye contact is good. Motor activity is appropriate. Appearance is casual. Speech is Appropriate. Mood is euthymic. Affect is constrictedl. Thoughts are linear and logical. No evidence of psychosis. Client Response/Progress/Benefit: [] Pt was an active participant in the group activity which involved working with peers to answer questions related to psychoeducation on cognitive distortions. Client engaged in activity in which group would practice identifying cognitive distortions, reframing cognitive distortions, and examples of distortions. Therapist used activity to reinforce psychoeducation and to help client retain the information through examples and practicing. Pt was engaged in the game and with peers on collaborating to determine the answers. Pt stated would like to work on challenging negative thoughts. Benefited from rehearsing ways to challenge/reframe cognitive distortions and by gaining increased insight into examples/definitions of 10 most common cognitive distortions. Will continue in IOP to maintain gains and prevent decompensation.
--- NOTE | 2022-11-01 14:00 | BH.MDN ---
Multi-Disciplinary Note - Note 30-min Individual Time Started:: 12:05 Date: 11/01/22 Purpose of session/treatment goals addressed:: To review pt's progress per the DSM-5, barriers, and goals. Symptoms/Behavior:: Pt did not feel well, so the session was shorter than expected. Eye Contact:: Good Motor Activity:: Appropriate Appearance:: Casual Speech:: Appropriate Mood:: Dysthymic Affect:: Flat Thoughts:: Linear, Logical, No evidence of hallucinations/delusions noted Staff Interventions:: thought challenging, motivational interviewing, strengths perspective, reviewed DSM-5, goal setting Client Response:: Pt responded well to session, open to meeting with therapist. Pt shared part way through session that she was not feeling well, so therapist did not want to push a lengthier session. Pt receptive to reviewing her DSM-5 scores and pt shared she has noticed some benefits since starting IOP. Pt acknowledges that her depressive symptoms have decreased, but pt still feels stuck with some of her goals. Pt wants to find a social community, increase exercise, and be more creative. Pt did buy a journal and pt plans to start journaling. Pt accomplished her goal of walking one day this week and pt found it beneficial. Pt's goal over the weekend is to get rest to avoid illness and to start journaling. Risks/Concerns:: Pt denies any suicidal ideations, plan, or intent. No thoughts of reported. Progress Toward Goals/Plan:: Pt continues to responded well to treatment AEB pt's consistent attendance and reduction of DSM-5 scores. Pt's scores decreased by 44% overall with depression decreasing 25% and anxiety by 60%. Pt's biggest stressors continue to be caregiving for her mother and . Pt also reports ongoing irritability and resentment towards her and negative thinking patterns that reinforce her depression. Pt was given some options for outpatient counselors when pt discharges from IOP to look over. Pt will continue IOP tx to promote the use of healthy coping skills, improve daily functioning, and increase the ability to combat distortions. Time Stopped:: 12:35
--- NOTE | 2022-11-05 09:00 | BH.SGPN.GN ---
Behaviors/Verbalizations/Mental Status: []Eye contact is good. Motor activity is appropriate. Appearance is casual. Speech is Appropriate. Mood is irritable. Affect is constricted. Thoughts are linear and logical. No evidence of psychosis. Reviewed daily check in sheet and pt's scores were within pt's baseline. Client Response/Progress/Benefit: []Pt responded well to session, attentive and engaged. Pt reports feeling irritable this morning due to all of her ongoing stressors. Pt is juggling care giving for her , mother, and sick cat. Pt shared she was able to visit her mother this weekend and used opposite action to sing [place] songs to her mother. Pt also identified getting to IOP as a win this morning because pt wanted to isolate. Pt struggles with giving herself credit and often minimizes her symptoms, stressors, and accomplishments which pt is working on. Pt appeared to benefit from reflecting on why her wins were wins. Pt will continue IOP tx to reduce negative self-talk, improve boundary setting, and increase self-compassion. Narrative Note: []
--- NOTE | 2022-11-05 10:10 | BH.SGPN.GN ---
Behaviors/Verbalizations/Mental Status: [] Eye contact is good. Motor activity is appropriate. Appearance is casual. Speech is Appropriate. Mood is depressed/irritable. Affect is congruent. Thoughts are linear and logical. No evidence of psychosis. Client Response/Progress/Benefit: [] Pt participated at times during the group discussions. Active participant in experiential activity. Attentive during psychoeducation. Pt provided input during discussion on types of social supports which included; family, friends, PCP, mental health providers, support groups, pets, ourselves, community classes, etc. Pt along with the group identified mental health benefits of social support which patient and group identified as; it can help with emotional release, help one to feel heard, validation, distraction, they can encourage us, provide motivation, provide accountability, and boost our mood. Pt along with peers also worked together to identify obstacles to utilizing support which included; feeling like one doesn't deserve support, past negative experiences, cognitive distortions, and avoidance/mood. Benefited from increased awareness of mental health benefits of social support and obstacles that prevent one from utilizing support. Will continue in IOP to prevent decompensation, increase healthy coping, and improve functioning. Narrative Note: []
--- NOTE | 2022-11-06 09:05 | BH.SGPN.GN ---
Behaviors/Verbalizations/Mental Status: [] Eye contact is good. Motor activity is appropriate. Appearance is casual. Speech is Appropriate. Mood is depressed/irritable. Affect is congruent. Thoughts are linear and logical. No evidence of psychosis. Reviewed daily check in sheet and no reports of suicidal ideations or intent. Client Response/Progress/Benefit: [] Pt participated at times during the group discussion. Attentive. Emotion for today is completely disconnected. Daily symptom tracker notes 3/5 for depression and 2/5 for anxiety and irritability. Mental health win was I stopped giving advice to my son. She did not elaborate much on this and when asked if she was giving support and listening instead she stated I don't know if I'm doing that. Very short check-in and choose not to elaborate on feeling disconnected today. She smiles and interacts with peers during their check-ins however struggled to elaborate on her distress this AM. Benefited from group support, encouragement, and feedback. Will continue in IOP to prevent decompensation and increase healthy coping. Narrative Note: []
--- NOTE | 2022-11-06 10:10 | BH.SGPN.GN ---
Behaviors/Verbalizations/Mental Status: []Pt alert and oriented, neatly dressed and groomed. Eye contact good. Motor activity appropriate. Speech within normal limits. Affect constricted, mood dysthymic. Thoughts linear, logical, no signs of hallucinations or delusions. Client Response/Progress/Benefit: []Pt was an active participant in group discussions. Participated with peers in experiential activity. Pt participated in an interactive discussion with peers in which they worked together to define what coping skills are. Group then identified unhealthy coping skills which included; isolating, sleeping to avoid, drugs and alcohol, and overcommitting. Pt displayed insight that she struggles facing her stressors which leads to avoidance and distraction. Reflected that this adds more stress to pt?s life and worsens mental health symptoms. Benefited from increased awareness and education the benefits of having a healthy coping repertoire and consequences of unhealthy coping on mental health and relationships. Will continue IOP tx to combat distorted thinking patterns, improve mood stability, and increase use of healthy coping skills. ? Narrative Note: []
--- NOTE | 2022-11-06 11:10 | BH.SGPN.GN ---
Behaviors/Verbalizations/Mental Status: []Client alert and oriented, casually dressed and groomed. Eye contact good. Motor activity appropriate. Speech within normal limits. Affect constricted, mood dysthymic. Thoughts linear, logical, no signs of hallucinations or delusions Client Response/Progress/Benefit: []Client responded well to session, taking notes and contributing. Group discussed the different categories of coping skills which included distraction, emotional release, grounding, self-love, and thought challenging. Client participated in creating a coping skills ?menu? from the five categories of coping skills. Client's coping skill menu included: exercise, allowing self to feel yanira and relaxation with her animals, journaling, pedicure, and positive affirmations. Appeared to benefit from increasing repertoire of healthy coping skills. Will continue IOP to improve follow through of goals, continue use of healthy coping, and prevent decompensation.
--- NOTE | 2022-11-07 11:15 | BH.SGPN.GN ---
Behaviors/Verbalizations/Mental Status: []Client alert and oriented, casually dressed and groomed. Eye contact good. Motor activity appropriate. Speech within normal limits. Affect constricted, mood euthymic. Thoughts linear, logical, no signs of hallucinations or delusions. Client Response/Progress/Benefit: []Client responded well to session, taking notes and participating in worksheet discussion. Client connected with the zones of action/change and reported that making sustainable change comes from stepping out of one?s comfort zone into the learning zone. Client set a goal to gain control over her people pleasing. Client reported her goal is to buy or rent a car with automatic transmission this week so her can drive himself. 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 Appeared to benefit from identifying a small goal to benefit mental health. Will continue IOP tx to increase consistent use of healthy coping, set boundaries, challenge distortions, and prevent decompensation.
--- NOTE | 2022-11-07 13:33 | BH.MDN ---
Multi-Disciplinary Note - Note 45-min Individual Time Started:: 10:25 Date: 11/07/22 Purpose of session/treatment goals addressed:: To address current barriers and utilize motivational interviewing. Another goal was work on goal #1 of pt's tx plan. Eye Contact:: Good Motor Activity:: Appropriate Appearance:: Casual Speech:: Soft, Other - pt not using humor to deflect today Mood:: Depressed Affect:: Constricted Thoughts:: Linear, Logical, No evidence of hallucinations/delusions noted Staff Interventions:: thought challenging, motivational interviewing, psychoeducation on: - core beliefs, CBT techniques, strengths perspective, goal setting - pt set a goal to find a new car for herself over the weekend, other - provided psychoeducation on different types of abuse Client Response:: Pt responded well to session, open to meeting with therapist. Pt opened up about her insight in group today and how she should have my 30 years ago. Pt stated she has stayed because she believes she is not good enough and him because I wasn't going to get any better. Pt receptive discussing her negative thought patterns and how these formed. Pt gained awareness that she is two different people, one person is very assertive and a good advocate and the other is a people pleaser and agreeable. Pt feels when it comes to her life she does not feel worthy of better, so she accepts unhealthy. Pt responded well to motivational interviewing and pt acknowledged that she either has to accept her current reality and resentment or begin to set some boundaries. Pt shared readiness to set boundaries with her by finding another car so pt does not have to be responsible for driving her everywhere. 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 Pt receptive to praise from therapist on her vulnerability today. Risks/Concerns:: pt denies any suicidal ideations, plan, or intent as of 11/07/22. Progress Toward Goals/Plan:: Pt is responding well to tx and continues to make progress towards her tx goals AEB pt's reduced DSM-5 scores and increase motivation to change today. Pt was less sarcastic about her issues and emotions today which shows some progress in openness and vulnerability. Pt continues to endorse a depressed mood, lack of motivation, lack of energy, resentment, and irritability. Pt continues to be an engaged group member and she completes homework. Pt will continue IOP tx to promote mood stability, increase self-compassion, and increase boundary setting. Time Stopped:: 11:12
--- NOTE | 2022-11-12 09:05 | BH.SGPN.GN ---
Behaviors/Verbalizations/Mental Status: [] Eye contact is good. Motor activity is appropriate. Appearance is casual. Speech is Appropriate. Mood is euthymic. Affect is full. Thoughts are linear and logical. No evidence of psychosis. Reviewed daily check in sheet and no reports of suicidal ideations or intentt. Client Response/Progress/Benefit: [] Pt was an active participant in group discussion. Attentive. Daily symptom tracker notes 12/29 for depression and anxiety. Emotion for today is optimistic. She shared a significant mental health win which involved getting a car with automatic transmission. Elaborated on how this benefited her mental health, decreased her obligations to transport support, and increased independence of her partner. Shared why she had been reluctant to make this change in the past and what gave her the courage and motivation this past weekend. Stressors involve her son who appears to be going through a manic episode which led to a hospitalization this past weekend. She struggles with her role in his life. Benefited from group support, encouragement, and feedback. Will continue in IOP to maintain safety, prevent decompensation, and to increase healthy coping skills. Narrative Note: []
--- NOTE | 2022-11-12 10:15 | BH.SGPN.GN ---
Behaviors/Verbalizations/Mental Status: []Pt alert and oriented, neatly dressed and groomed. Eye contact good. Motor activity appropriate. Speech within normal limits. Affect congruent, mood euthymic. Thoughts linear, logical, no signs of hallucinations or delusions. Client Response/Progress/Benefit: []Pt participated in group discussion. Group worked together to identify benefits of healthy relationships which included improves mental health, encouragement, motivation, accountability, validation, connection, someone to share experiences with, and support during challenges. Group identified factors that lead to unhealthy relationships which included trauma, lack of communication, and substance use. Pt shared she avoids having vulnerable discussions in her relationships which can lead to unhealthy relationships and issues. Pt did well during the activity to listen to peers and stay engaged. Benefited from increased insight and awareness of benefits of healthy relationships and factors that contribute to unhealthy relationships. Will continue in IOP to increase healthy boundary setting, reduce negative self-talk, and improve mood stability. ?? Narrative Note: []
--- NOTE | 2022-11-12 11:10 | BH.SGPN.GN ---
Behaviors/Verbalizations/Mental Status: [] Client alert and oriented, casually dressed and groomed. Eye contact fair. Motor activity appropriate. Speech within normal limits. Affect constricted, mood dysthymic. Thoughts linear, logical, no signs of hallucinations or delusions. Client Response/Progress/Benefit: [] Client responded well to session, engaged and taking notes. work with small group to identify characteristics of healthy and unhealthy relationships. Attentive during psychoeducation and discussion about characteristics of healthy, unhealthy, and abusive relationships. Client did not identify an area that she could work on to improve her relationships. Client stated that carissa has sailed in regards to being able to improve her marriage. Client able to recognize her buying a car this weekend was one step she took to set a boundary and do something that would be helpful for her within her marriage. Appeared to benefit from identifying areas she wants to work on to build healthier relationships. Pt recommended to continue IOP tx to improve confidence, challenge distortions, and prevent decompensation.
--- NOTE | 2022-11-13 09:00 | BH.SGPN.GN ---
Behaviors/Verbalizations/Mental Status: [] Eye contact is good. Motor activity is appropriate. Appearance is casual. Speech is Appropriate. Mood is euthymic. Affect is full. Thoughts are linear and logical. No evidence of psychosis. Reviewed daily check in sheet and no reports of suicidal ideations or intent. Client Response/Progress/Benefit: []Pt responded well to session AEB listening attentively to others and sharing thoughts and feelings. Pt stated mental health positive as getting time to sit her relaxing chair without having the tv on in the background. pt reported her buying a automatic transmission car this weekend is paying off because when she got home he drove himself to the movies which gave her time to relax at her house. Pt stated additional mental health positive as using opposite action to get her out of her bed and shower. Pt reported she is still skeptical about opposite action but starting to see some benefit to the skill for certain tasks. Pt reported current stressor is worried about whether she should be buying gifts that would be from her mom because her mom enjoyed doing that but is not in a mental capacity to do that anymore. Pt seemed to benefit from support from peers. Pt to continue IOP to continue use of healthy coping, challenge negative thinking, and prevent decompensation. Narrative Note: []
--- NOTE | 2022-11-13 10:05 | BH.SGPN.GN ---
Behaviors/Verbalizations/Mental Status: []Eye contact is good. Motor activity is appropriate. Appearance is casual. Speech is Appropriate. Mood is anxious and dysthymic. Affect is congruent. Thoughts are linear and logical. No evidence of psychosis. Client Response/Progress/Benefit: []Pt participated during the group discussion. Attentive during psychoeducation and actively engaged during experiential activity. Participated during interactive discussion on aspects of fixed mindset. Group identified several aspects of fixed mindset which included; inflexible, belief that one cannot grow, absolute thinking, and all of one's skills, traits, and behaviors are set in stone and can't change. Pt did well in experiential activity in which they were given a seemingly impossible task and were asked to identify fixed thoughts that arose. Group then identified personal examples of fixed thinking in which pt shared personal fixed thoughts as: ?I?m not creative?, ?I have nothing to say to interest anybody?, and ?I?m unlovable?. Benefited from increased understanding of personal fixed mindsets and how they can impact mental health. Will continue in IOP to prevent decompensation, continue to improve mood stability, and promote self-care. Narrative Note: []
--- NOTE | 2022-11-13 11:05 | BH.SGPN.GN ---
Behaviors/Verbalizations/Mental Status: []Pt alert and oriented, neatly dressed and groomed. Eye contact good. Motor activity appropriate. Speech within normal limits. Affect full, mood euthymic. Thoughts linear, logical, no signs of hallucinations or delusions. Client Response/Progress/Benefit: []Pt engaged during activity and discussion AEB providing some input, connecting with peers, as well as taking notes throughout. Pt did well to engage as group worked on identifying characteristics and benefits of adopting a growth mindset. Worked with fellow participants in reframing the example fixed thoughts into growth mindset thoughts. Reframed personal fixed thought of ?I?m not creative? with growth mindset thought of ?I can try anyway and keep trying? Benefitted from discussing benefits of growth mindset and brainstorming strategies for prompting growth-mindset. Pt made significant progress this week with getting a car that her can drive. Pt will continue IOP tx to promote mood stability, improve self-compassion, and increase self-care. Narrative Note: []
--- NOTE | 2022-11-13 11:35 | PCM.BH.PN_ITS ---
Progress Note Progress Note: History of Present Illness/Interim History: [] The patient is a 72-year-old female with a history of depression who is seen in follow-up at the [facility] behavioral health IOP program. I last saw the patient 3 weeks ago and the patient and staff feel that the patient has been making good progress in the program. She has been consistent and engaged and she feels she is learning valuable skills to help deal with her mental health issues. She states that she feels the medication is also helping her a lot in recent weeks. She has been able to be more assertive with her lately which has helped her mood improve also. She bought a car with an automatic steering so that her cannot drive himself sometimes. She denies any hopelessness now. She denies worthlessness. She is starting to enjoy more things. She denies any passive thoughts of now. She also still denies suicidal ideation, plan for suicide, homicidal ideation, hallucinations or delusions. Current Psychiatric Medications: [] Cymbalta 60 mg p.o. daily (for 8 years); Wellbutrin XL 150 mg p.o. every morning (x5 weeks now); BuSpar 15 mg p.o. daily Mental Status Examination: [] The patient is a 72-year-old female who appears normal for stated age and is casually dressed and groomed with good hygiene. She is ambulatory with a normal gait and has no psychomotor agitation or retardation. She is cooperative and pleasant during the interview. Speech is normal rate and rhythm and fluent with no pressure. Eye contact is good. Mood is minimally depressed to euthymic. Affect is full and normal. Thought process is goal-directed and organized. Thought content: The patient feels hopeful for the future. There is no evidence of passive thoughts of , suicidal ideation, plan for suicide, homicidal ideation, hallucinations or delusions. Reality testing is intact. Impulsivity is low. Intelligence is above average. Judgment is intact. Insight is good. Diagnoses: [] 1. 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 Generalized anxiety disorder 3. Primary support issues Plan: [] The patient will continue the IOP program at [facility] as the structure, support, education and group therapy will hopefully prevent worsening of the patient's symptoms. She felt safe during the interview and if it anytime she does not feel safe she will let us know or go to the emergency room. The risks, options, possible complications and side effects of the medications were again discussed with the patient and she understands and accepts them. No medication changes were made today. The patient will continue to follow-up with her outpatient providers and I will see the patient in follow-up while she is in the IOP program.
--- NOTE | 2022-11-14 09:00 | BH.SGPN.GN ---
Behaviors/Verbalizations/Mental Status: []Pt alert and oriented, neatly dressed and groomed. Eye contact good. Motor activity appropriate. Speech within normal limits. Affect congruent, mood euthymic and anxious. Thoughts linear, logical, no signs of hallucinations or delusions. Reviewed pt?s symptom tracker, no risk for suicidal ideation, plan, or intent as of 11/14/22 Client Response/Progress/Benefit: []Pt responded well to session, attentive and receptive to feedback. Pt reports feeling troubled this morning due to noticing early warning signs of her 's increased alcohol use. Pt's has alcoholism, so pt is fearful that his use will worsen again. Discussed what pt could do to support herself and pt shared feeling more open to Al-Anon. Pt's mental health win today is that she got a car recently which has given pt more free time and pt has decided to reach out to a brother she has not spoken to in many years. Pt appeared to benefit from reflecting on her growth. Pt will continue IOP tx to promote mood stability, reduce negative self-talk, and improve self-care. Narrative Note: []
--- NOTE | 2022-11-14 10:10 | BH.SGPN.GN ---
Behaviors/Verbalizations/Mental Status: [] Eye contact is good. Motor activity is appropriate. Appearance is casual. Speech is Appropriate. Mood is anxious/irritable. Affect is congruent. Thoughts are linear and logical. No evidence of psychosis. Client Response/Progress/Benefit: [] Pt was an active participant in group discussions and experiential activity. Attentive during psychoeducation. Participated along with peers on working to define locus of control and provide examples of internal and external locus of control. Interactive discussion between group members, pt, and therapist on characteristics of internal locus of control which included; takes responsibility for actions, less influenced by others and increased confidence. Some characteristic identified by patient and peers for external locus of control included; others have more influence and control, decreased motivation to make changes if one believes that mood/thoughts/self-esteem are based on others. Active and engaged during experiential activity and was able to see correlations between activity and emotions/perspectives associated with internal vs external locus of control. Benefited from increased insight and awareness of internal vs external locus of control and how this could impact mental health. Will continue in IOP to prevent decompensation, increase healthy coping, and improve functioning. Narrative Note: []
--- NOTE | 2022-11-14 13:33 | BH.MDN ---
Multi-Disciplinary Note - Note 45-min Individual Time Started:: 11:30 Date: 11/14/22 Purpose of session/treatment goals addressed:: To work on goal #1 of pt's treatment plan. Another goal was to discuss aftercare plan and give pt praise. Eye Contact:: Good Motor Activity:: Appropriate Appearance:: Neat Speech:: Appropriate Mood:: Euthymic Affect:: Congruent Thoughts:: Linear, Logical, No evidence of hallucinations/delusions noted Staff Interventions:: thought challenging, psychoeducation on: - core beliefs, CBT techniques, discharge planning, strengths perspective, goal setting Client Response:: Pt responded well to session, open to meeting with therapist. Pt shared earlier this week that she accomplished her goal of buying a new car. Pt stated now that she owns a car her can drive, pt has more free time to herself. Pt shared she is also ready to explore Al-Anon as well to get more support and potential ideas on boundaries with addicts. Pt completed her homework from last week which was to read about defense mechanisms. Pt shared she most often uses rationalization, intellectualizing, and denial. Pt reports worry that her being more witty and joking more is a defense mechanism. Discussed that not everything is one or the other. Pt brought up core beliefs and pt shared she discovered that her core beliefs are centered around being a good girl. Pt gained awareness of one of her core beliefs which is that she is not good enough to love. Discussed how one changes their core beliefs, through creating new ones and building evidence. Pt wants to work on building evidence for a new core belief by creating a goal for herself to begin writing. Risks/Concerns:: Pt denies any suicidal ideations, plan, or intent as of 11/14/22. Progress Toward Goals/Plan:: Pt continues to make progress towards her tx goals AEB her self-report of improved mood and setting boundaries with her . Pt also shared she is more witty and laughing more. Pt is worried that this is still a defense mechanism, but pt can see that overall she is more positive. Pt continues to endorse ruminations, negative core beliefs, and lack of motivation at times. Pt did not decide on an outpatient therapist yet. Pt will continue IOP tx to promote mood stability, maintain gains, and improve self-compassion. Time Stopped:: 12:20
--- NOTE | 2022-11-19 09:05 | BH.SGPN.GN ---
Behaviors/Verbalizations/Mental Status: [] Eye contact is good. Motor activity is appropriate. Appearance is casual. Speech is Appropriate. Mood is euthymic. Affect is full. Thoughts are linear and logical. No evidence of psychosis. Reviewed daily check in sheet and no reports of suicidal ideations or intent. Client Response/Progress/Benefit: [] Pt was an active participant in group discussion. Attentive. Emotion for today is upbeat. Daily symptom tracker notes 12/29 for depression and anxiety. Mental health wins include I started journaling. She briefly shared her reasons for starting this and peers provided feedback on what has worked for them in journaling. She believes that recent medication changes have resulted in increased energy and motivation. She has also started to try coping skills and is seeing the benefits. Benefited from group support, encouragement, and feedback. Her primary stressor continues to be her and their conflicted relationship. Narrative Note: []
--- NOTE | 2022-11-19 10:10 | BH.SGPN.GN ---
Behaviors/Verbalizations/Mental Status: []Pt alert and oriented, casually dressed and groomed. Eye contact good. Motor activity appropriate. Speech within normal limits. Affect congruent, mood euthymic. Thoughts linear, logical, no signs of hallucinations or delusions. Client Response/Progress/Benefit: []Attentive during psychoeducation on SMART (Specific, Measurable, Achievable, Realistic, Timely) goals AEB by note-taking. Attentive during group discussion on benefits to setting goals which group identified as; reduced anxiety, increased motivation, better relationships, and increase confidence. Pt identified obstacles to setting/completing goals which included; procrastination, mental health, believing they are too difficult, procrastination, self-doubt, and unrealistic expectations. Engaged during activity and was able to relate the activity to goal-setting topic. Benefited from increased awareness on benefits to goal-setting, obstacles to developing and following through with a goal, and strategies for setting goals. Will continue in IOP to increase self-compassion, reduce negative self-talk, and further reduce intensity of symptoms. ? Narrative Note: []
--- NOTE | 2022-11-19 11:10 | BH.SGPN.GN ---
Behaviors/Verbalizations/Mental Status: []Eye contact good. Alert and oriented. Motor activity is appropriate. Appearance is casual, grooming appropriate. Speech Appropriate. Mood is dysthymic. Affect is congruent. Thoughts are linear and logical. No evidence of psychosis or hallucinations. Client Response/Progress/Benefit: []Client was engaged during discussion and activity portions of group. Willing to complete the worksheet challenging each participant to develop a personal SMART goal. Client chose the goal of signing up to work with a physical therapy manager and consistently attending weekly sessions for the next month. Client stated this will benefit them by aiding in ?alleviating depression? and improve physical health. Client identified barriers which included: lack of appropriate attire, her ?s needs/schedule, cost, and body shame. Client receptive to identifying solutions for these barriers and willing to begin working on this goal. Benefited from this group by developing a short-term SMART goal related to mental health. Will continue IOP tx to further improve mental health sx management, increase consistency of behavior activation skills, and prevent decompensation. Narrative Note: []
--- NOTE | 2022-11-20 09:00 | BH.SGPN.GN ---
Behaviors/Verbalizations/Mental Status: []Pt eye contact good, casually dressed, motor activity appropriate, speech normal rate and tone, mood irritable, constricted affect, thoughts linear and intact, no evidence of delusions or hallucinations. Pt's symptom tracker indicates no current suicidal ideation, plan, or intention. Client Response/Progress/Benefit: []Pt responded well to session AEB listening attentively to others and sharing thoughts and feelings. Pt reported mental health positive as signing up for personal training sessions yesterday. Pt stated the sessions start next week and this is something she has been putting off doing for awhile. Pt reported feeling grumpy this morning because she knows her time in IOP is coming to an end soon. Pt stated as of now IOP is her only source of socialization so is worried what she will do when the program ends. Pt open to suggestions from peers about things she could do for socialization in the area. Seemed to benefit from support from peers. Pt to continue IOP to challenge negative thoughts, increase consistent use of healthy coping, and prevent decompensation. Narrative Note: []
--- NOTE | 2022-11-20 10:08 | BH.SGPN.GN ---
Behaviors/Verbalizations/Mental Status: []Pt alert and oriented, casually dressed and groomed. Eye contact good. Motor activity appropriate. Speech within normal limits. Affect constricted, mood irritable. Thoughts linear, logical, no signs of hallucinations or delusions. Client Response/Progress/Benefit: []Pt participated at times during the group discussions. Participated during interactive discussion on defining conflict (internal/external) and possible benefits to conflict. Attentive during psychoeducation on conflict styles and engaged during small group activity in which peers identified the benefits and consequences to each conflict style. Pt identified that their primary conflict style as avoiding and accommodating. Pt stated ?I prefer to deny problems unless I can?t.? Pt shared this leads to pt eventually blowing up and getting taken advantage of. Benefited from increase awareness of the impact of conflict styles in mental health. Will continue in IOP to further reduce negative thinking, improve motivation, and establish aftercare. Narrative Note: []
--- NOTE | 2022-11-20 11:08 | BH.SGPN.GN ---
Behaviors/Verbalizations/Mental Status: []Pt alert and oriented, casually dressed and groomed. Eye contact good. Motor activity appropriate. Speech within normal limits. Affect constricted, mood euthymic. Thoughts linear, logical, no signs of hallucinations or delusions. Client Response/Progress/Benefit: []Pt engaged in session AEB contributing to discussion and engaging in activity. Pt did well to review current conflict style and its impact on mental health. Attentive and taking notes during discussion on strategies for more effectively managing conflict in personal life.? Pt participated in activity and did well to talk through choices with peers. Pt given handout on fair fighting rules and identified that they want to work on expressing her feelings with words instead of avoiding and shutting down. Appeared to benefit from gaining strategies to help pt better manage conflict. Will continue IOP tx to reduce negative thinking patterns, further increase motivation, and improve daily functioning. Narrative Note: []
--- NOTE | 2022-11-20 15:12 | BH.MDN_ITS ---
Multi-Disciplinary Note - Note 30-min Individual Time Started:: 12:00 Date: 11/20/22 Purpose of session/treatment goals addressed:: To address current stressors and discuss strategies to help cope with these stressors. Another goal was to discuss discharge and aftercare. Eye Contact:: Good Motor Activity:: Appropriate Appearance:: Casual Speech:: Appropriate Mood:: Anxious Affect:: Constricted Thoughts:: Linear, Logical, No evidence of hallucinations/delusions noted Staff Interventions:: thought challenging, discharge planning, strengths perspective, goal setting Client Response:: Pt responded well to session, open to meeting with therapist. Pt reports progress in many areas of her life including getting out of her house more, setting a boundary with her , and signing up for a gym membership. However, pt continues to struggle with giving herself credit and minimized most of her progress. Pt shared she still does not feel like she has found yanira which was one of her initial goals. Pt able to challenge her perspective and we discussed noticing how pt's feelings towards life have shifted. Pt laughs more at [facility] and is more engaged in her daily life. Pt reports less anger each day which has helped pt make more room for other emotions. Pt was given information on outpatient therapists a few weeks ago, but reported that she has not scheduled yet. Pt was encouraged to do that before next week. Pt wants to participate in [facility] aftercare. Risks/Concerns:: Pt denies any suicidal ideations, plan, or intent as of 11/20/22. Progress Toward Goals/Plan:: Pt continues to respond well to tx and she reports that I would stay here as long as I could. Pt is anxious to leave because of the social stimulation she gets from [facility]. Pt is receptive to creating more soc ial connections and did make progress by signing up for the gym. Pt's symptoms of depression have decreased since admission and pt is scheduled to discharge from [facility] next week. Pt can benefit from one more week as pt still needs outpatient therapy and can reinforce healthy coping skills. Time Stopped:: 12:25
--- NOTE | 2022-11-22 09:05 | BH.SGPN.GN ---
Behaviors/Verbalizations/Mental Status: []Pt alert and oriented, casually dressed and groomed. Eye contact good. Motor activity appropriate. Speech within normal limits. Affect constricted, mood stressed. Thoughts linear, logical, no signs of hallucinations or delusions. Reviewed pt?s symptom tracker and pt denies any active SI, plan, or intent as of 11/22/22. ? Client Response/Progress/Benefit: []Pt responded well to session, attentive and engaged. Pt reports feeling stressed this morning because pt's son wants to talk about something that is bothering him and pt does not want to have this conversation. Pt did not say what the conversation was about, but pt shared that her son struggles with his own mental health and he has not always managed this well. Pt recently bought a new car and pt stated this has allowed pt to have more time to herself as pt's has been getting out of the house more. Pt also identified that she used opposite action today as pt struggled to get out of bed. Pt appeared to benefit from reflecting on her progress in boundary setting. Pt will continue IOP tx to promote mood stability, improve self-compassion, and establish aftercare. Narrative Note: []
--- NOTE | 2022-11-22 10:10 | BH.SGPN.GN ---
Behaviors/Verbalizations/Mental Status: Client alert and oriented, casually dressed and groomed. Eye contact good. Motor activity appropriate. Speech within normal limits. Affect congruent, mood dysthymic. Thoughts linear, logical, no signs of hallucinations or delusions. Client Response/Progress/Benefit: [Client responded well to session, attentive and participating in discussion. Participated in discussion of things that can keep people feeling trapped or stuck in life including: isolation, past experiences, negative perspective, and low self-esteem. Group discussed the connection between thoughts, emotions, and behaviors as well as how negative thinking can keep a person stuck. Client attentive during psychoeducation on maintenance cycles. Client able to identify negative thoughts that have reinforced depression and kept client feeling trapped. Client shared a negative thought maintaining depression is It's all my fault. Stated this thought leads her to do nothing and stay in bed. Appeared to benefit from gaining awareness of how negative thoughts reinforce mental health symptoms and keep people stuck. Client to continue IOP to challenge distorted thoughts, increase ability to set boundaries, and prevent decompensation.
--- NOTE | 2022-11-22 11:05 | BH.SGPN.GN ---
Behaviors/Verbalizations/Mental Status: []Client alert and oriented, casually dressed and groomed. Eye contact good. Motor activity appropriate. Speech within normal limits. Affect congruent, mood euthymic. Thoughts linear, logical, no signs of hallucinations or delusions. Client Response/Progress/Benefit: []Client responded well to session, contributing to discussion, and providing supportive feedback. Client identified a negative thought that has kept them stuck. Client's thought was It?s all my fault. Client reported when they think this way, they isolate and become more angry both internally and externally. Client worked to reframe the thought by finding more rational, realistic ways to look at the thoughts and then processed within group setting. Client reframed the thought to ?Others have told me I do a good job with my mother, for example my friend ?H?.? Client stated she will continue to try and remind herself of times this thought has not been true to continue challenging negative self-talk. Client appeared to benefit from practicing challenging negative thinking. Client will continue IOP tx to increase overall functioning and prevent decompensation. Narrative Note: []
== END 2022-11-23 23:59 ==
LOC: BHIOP 08:21
PROVIDERS: PCP Family Medicine; Visit Provider Psychiatry & Neurology Psychiatry
DX: F33.2 Major depressive disorder, recurrent severe without psychotic features (principal); F41.1 Generalized anxiety disorder; Z79.899 Other long term (current) drug therapy
CPT/HCPCS: S9480; 90832; 90834; 90853

== ENCOUNTER 2022-11-26 07:27 | Outpatient (RCR) | payer MEDICARE, OTHER, SELFPAY ==
[2022-11-24 00:33] VITALS: BP 148/99; PULSE 83
--- NOTE | 2022-11-26 09:00 | BH.SGPN.GN ---
Behaviors/Verbalizations/Mental Status: []Eye contact fair to good, casually dressed, motor activity appropriate, speech normal rate and tone, mood anxious and euthymic, congruent affect, thoughts linear and intact, no evidence of delusions or hallucinations. Reviewed pt's symptom tracker, reports suicidal ideation within pt baseline and denies active plan or intent as of this date 11/26/22. Client Response/Progress/Benefit: []Pt responded well to session, attentive and providing supportive feedback throughout. Pt reports feeling ?burdened this morning as she is continuing to struggle with caregiving responsibilities related to her mother and ongoing health issues her cats have had. Did well to identify wins which included running two errands this morning prior to getting here. As well as, being able to celebrate the of her new grandson. Appeared to benefit from group discussion and supportive environment. Recommended continued IOP tx to continue to improve consistency of healthy skill application, maintain mood stability, as well as prevent decompensation. Narrative Note: []
--- NOTE | 2022-11-26 10:15 | BH.SGPN.GN ---
Behaviors/Verbalizations/Mental Status: []Pt alert and oriented, neatly dressed and groomed. Eye contact good. Motor activity appropriate. Speech within normal limits. Affect constricted, mood anxious. Thoughts linear, logical, no signs of hallucinations or delusions. Client Response/Progress/Benefit: []Pt responded well to session, contributing to discussion and engaged during the activity. Pt identified the benefits of change which included: ?getting away from past failures,? gaining new opportunities, and less stress. Worked with the group to identify barriers to change and pt identified personal barrier as fear of the unknown. Pt participated along with group in activity where they identified and discussed the emotions related to change. Pt participated in discussion on the change process and personal experiences with implementing change in past. Benefited from increased awareness and understanding of emotions, benefits, and barriers related to change. Will continue IOP tx to further improve daily functioning, reinforce healthy coping skills, and establish aftercare. ? Narrative Note: []
--- NOTE | 2022-11-26 11:10 | BH.SGPN.GN ---
Behaviors/Verbalizations/Mental Status: []Pt alert and oriented, casually dressed and groomed. Eye contact good. Motor activity appropriate. Speech within normal limits. Affect congruent, mood euthymic. Thoughts linear, logical, no signs of hallucinations or delusions. Client Response/Progress/Benefit: []Pt responded well to session, attentive. Did well to process activity and work with group to relate the strategies used to overcome barriers in the activity to managing change in own life. Pt identified wanting to work on journaling more consistently as the change pt wants to make. Pt shared she has struggled with follow through due to guilt about taking time away from other responsibilities. Pt?s goal for the day is to write for 15 minutes. Appeared to benefit from identifying a small goal to work towards. Pt will continue IOP tx to reinforce use of healthy coping skills and maintain gains. Narrative Note: []
--- NOTE | 2022-11-27 09:05 | BH.SGPN.GN ---
Behaviors/Verbalizations/Mental Status: []Pt alert and oriented, casually dressed and groomed. Eye contact good. Motor activity appropriate. Speech within normal limits. Affect constricted, mood irritable. Thoughts linear, logical, no signs of hallucinations or delusions. Reviewed pt?s symptom tracker and pt denies any active SI, plan, or intent as of 11/27/2022. ? Client Response/Progress/Benefit: []Pt responded well to session, attentive and engaged. Pt reports feeling uncooperative this morning and shared she is sad to be leaving IOP soon. Pt stated she is struggled about her cats and maintaining progress. Pt did give herself credit for engaging in more self-care and going to [employer] to create a membership. Pt struggles with giving herself credit, but pt has been less depressed and more social than she was weeks ago. Pt appeared to benefit from reflecting on her growth. Pt will continue IOP tx and discharge later this week. Pt can benefit from one more IOP session to establish aftercare and reinforce healthy coping skills. Narrative Note: []
--- NOTE | 2022-11-27 11:10 | BH.SGPN.GN ---
Behaviors/Verbalizations/Mental Status: []Client alert and oriented, casually dressed and groomed. Eye contact fair. Motor activity appropriate. Speech within normal limits. Affect constricted. Mood euthymic. Thoughts linear, logical, no signs of hallucinations or delusions. Client Response/Progress/Benefit: []Client responded well to session as evidenced by client listening attentively to others and providing strategies during discussion. Client identified his warning signs for crisis and gained further awareness of earliest warning signs. Client created a crisis action plan to help client better manage warning signs for crisis. Client?s action plan for lapse in hygiene included: opposite action, getting nice soaps and oils, and choosing time of day to shower. Client appeared to benefit from creating a crisis action plan and increasing self-awareness. Client to continue IOP tx to continue use of healthy coping skills and prevent decompensation.
--- NOTE | 2022-11-27 14:19 | BH.MDN ---
Multi-Disciplinary Note - Note 30-min Individual Time Started:: 10:20 Date: 11/27/22 Purpose of session/treatment goals addressed:: To follow up with pt's aftercare plan and to work on pt's maintenance plan. Eye Contact:: Good Motor Activity:: Appropriate Appearance:: Casual Speech:: Appropriate Mood:: Euthymic, Anxious Affect:: Congruent Thoughts:: Linear, Logical, No evidence of hallucinations/delusions noted Staff Interventions:: discharge planning, strengths perspective, other - worked on pt's maintenance plan; discussed community supports. Client Response:: Pt responded well to session, open to meeting with therapist. Pt reports feeling sad and anxious about leaving IOP, but pt can see that she has made some progress. Since starting IOP, pt has gotten out of her house daily, she has a gym membership, and she has set boundaries with her . Pt is receptive to gaining social support by looking in to [place] and events at the community center. Pt willing to work on her maintenance plan with therapist. Pt created a maintenance plan to help pt cope with negative thinking patterns. Pt identified triggers such as getting feedback, getting invitations, and setting goals for self. Discussed what pt can do to prevent herself from failing into unhealthy coping and pitfalls. Pt identified opposite action as one of the most important coping skills for her to use. Risks/Concerns:: Pt denies any suicidal ideations, plan, or intent as of 11/27/22. Denies any thoughts of . Progress Toward Goals/Plan:: Pt plans to discharge this Friday as pt has accomplished her treatment goals per her report and has reached maximum benefit of IOP level of care. Pt reports plan to follow up with her outpatient psychiatrist, but pt has yet to call and schedule with outpatient therapy. Pt will participate in IOP aftercare and now has a gym membership. Pt can benefit from one more IOP day to reinforce healthy coping skills and provide closure. Time Stopped:: 10:53
--- NOTE | 2022-11-27 14:27 | BH.AFTERPLAN ---
Aftercare Plan - Demographics Treatment End Date:: 11/29/22 Psychiatrist:: Sarah Castellon Psychiatrist Office #:: [phone] [facility]/IOP Therapist:: Gianna Ortega Therapist Phone #:: [phone] - Plan Details Progress/Aftercare Plan Details:: Pt has responded well to treatment as evidenced by Pt consistently attending IOP sessions and her reduction of DSM-5 scores since admission by 72%. Pt was always attentive and receptive to learning during group and individual sessions. Pt reported using coping skills outside of IOP and reports overall her mood is improved and her is functioning better than it was several months ago. Pt?s overall symptom reduction is 72% since admission with anger reducing by 67% and anxiety decreasing by 80%, and depression decreasing by 50%. Pt has set difficult boundaries, signed up for a gym membership, and is consistently getting out of her house. Strategies for Success:: 1. Opposite action! Continue to challenge yourself to not let anxiety or depression drive your bus. 2. Set small goals each day and break down bigger stressors. 3. Continue to ask for help and advocate for yourself. 4. Challenge distorted thoughts. Remember that something can be overwhelming AND you can cope with it. 5. Keep up with your appointments and spending time outside your home. 6. Self-care! this means the fun and not so fun stuff. 7. Keep journaling! 8. Keep a routine and go to [employer] 9. Give yourself credit and work on that self-compassion! - Appointments Appointments/Referrals to Other Services:: 1. Dr. Martinez for medication management. 2. Therapist options provided that accept Medicare. [facility] was the closed to Pt. 3. IOP aftercare starting 12/05/21 for eight weeks. - Medications Home Medications: Home Medications buspirone 15 mg tablet 22.5 mg PO BID 05/13/18 duloxetine 60 mg capsule,delayed release (Cymbalta) 60 mg PO DAILY 05/13/18 valsartan 80 mg tablet 80 mg PO DAILY 05/13/18 calcium carbonate 600 mg-vitamin D3 10 mcg (400 unit) capsule 1 cap PO BID 09/14/21 pravastatin 20 mg tablet 20 mg PO DAILY 09/14/21 bupropion HCl 150 mg 24 hr tablet, extended release (Wellbutrin XL) 150 mg PO DAILY 90 days #90 tabs 10/23/22
--- NOTE | 2022-11-29 08:41 | BH.DS_ITS ---
Discharge Summary - Demographics Date of Admission:: 10/08/22 Discharge Date: 11/29/22 Presenting Problems at Admission:: Pt is a 72-year-old female with a history of depression. Pt referred herself to [facility] tx due to worsening mental health symptoms that is impacting her functioning. At admission, pt reported decompensation over the past 4 months with low energy, lack of motivation, poor focus, poor concentration, hopelessness, and isolation. Pt also admitted to survival ambivalence and pt reports finding no yanira in life. Pt reported difficulty completing ADLs and increased irritability. At admission, pt's symptoms were impacting her social, familial, and daily functioning. 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 Pt will begin IOP aftercare and was referred to outpatient counseling. - Treatment Progress During Treatment & Response: Pt has responded well to treatment as evidenced by Pt consistently attending IOP sessions and her reduction of DSM-5 scores since admission by 72%. Pt was always attentive and receptive to learning during group and individual sessions. Pt reported using coping skills outside of IOP and reports overall her mood is improved and her is functioning better than it was several months ago. Pt?s overall symptom reduction is 72% since admission with anger reducing by 67% and anxiety decreasing by 80%, and depression decreasing by 50%. Pt has set difficult boundaries, signed up for a gym membership, and is consistently getting out of her house. Issues Still to be Addressed:: Pt can benefit from ongoing counseling to increase motivation, reduce negative self-talk, and increase healthy support systems. Pt can continue to work on boundary setting, self-compassion, and opposite action. [facility] and could benefit from this greatly due to her 's long-term alcohol use disorder. Discharge Recommendations/Instructions:: Pt sees Dr. Martinez for medication management and has seen him within the last three months. Pt did not know when her next scheduled appointment with him is. Pt was provided options for outpatient therapists at IOP review, but pt reported she did not call to set up appointments. Pt was encouraged at discharge to call and schedule to prevent a gap in services. Pt will start IOP aftercare on 12/05/22 which pt will attend weekly. Discharge Handout: Complete Discharge Handout with client on aftercare options and continuity of care.
== END 2022-11-29 08:54 | disposition home or self-care (01) ==
LOC: BHIOP 07:27
PROVIDERS: PCP Family Medicine; Visit Provider Psychiatry & Neurology Psychiatry
DX: F33.2 Major depressive disorder, recurrent severe without psychotic features (principal); F41.1 Generalized anxiety disorder
CPT/HCPCS: S9480; 90832; 90853

== ENCOUNTER 2022-12-05 08:00 | Outpatient (RCR) | payer MEDICARE, OTHER, SELFPAY ==
--- NOTE | 2022-12-05 13:18 | BH.MTP ---
Master Treatment Plan - Patient Information Program Physician:: Dr. 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 - Objectives Objective #1 Stated Objective: Client will continue to consistently apply healthy coping skills to maintain progress made in IOP tx. Interventions: Through group therapy, client will review warning signs and triggers as well as healthy coping skills learned in IOP tx to successfully maintain gains while transitioning into outpatient therapy. Discharge Criteria: Client will have accomplished this goal when client's score on the DSM-5 cross-cutting measure has maintained or reduced over a 8 week period. Target Date: 01/30/23 Review Date: 01/02/23 Status: open Objective #2 Stated Objective: Client will learn and utilize 2-3 maintenance strategies to prevent decompensation from original IOP DSM-5 scores. Interventions: Through group therapy, client will be provided with education on healthy maintenance behaviors, relapse prevention techniques, and healthy coping strategies. Discharge Criteria: Client will have accomplished this goal when can report using at least 2 maintenance skills to prevent decompensation compared to original IOP DSM-5 scores Target Date: 01/30/23 Review Date: 01/02/23 Status: open
--- NOTE | 2022-12-05 14:00 | BH.COMM ---
Communication Note - Communication with Client Communication Note: Presented completed IOP and presents today to starting relapse prevention group which meets once weekly (1.5 hours) for 8 weeks. Case discussed with Dr. Gallagher with plan to admit with dx of F33.2
--- NOTE | 2022-12-12 14:00 | BH.SGPN.GN ---
Behaviors/Verbalizations/Mental Status: []Client alert and oriented, casually dressed and groomed. Eye contact good. Motor activity appropriate. Speech within normal limits. Affect congruent, mood euthymic. Thoughts linear, logical, no signs of hallucinations or delusions. Client Response/Progress/Benefit: []Pt receptive of session, engaged throughout. Pt completed the aftercare self-reflection worksheet sharing they have not yet made an appointment for outpatient counseling and saw their psychiatrist recently, they are taking medications as prescribed, and have been using journaling, opposite action, and lowering her expectations as coping skills. Receptive of discussion on healthy habits and habit formation, as well its importance in maintaining mental health stability. Pt worked cooperatively with group to identify benefits of developing and maintaining healthy habits. Engaged in brainstorming strategies for identifying and changing unhealthy habit patterns. Reported she wants to work on challenging a current unhealthy habit of isolating during the day with challenging herself to go to the gym or the anabaptism. Pt seemed to benefit from support from peers and increasing understanding of healthy habit formation benefits and strategies. Will continue aftercare tx to maintain gains and prevent decompensation. Narrative Note: []
--- NOTE | 2022-12-19 14:00 | BH.SGPN.GN ---
Behaviors/Verbalizations/Mental Status: []Pt alert and oriented, casually dressed and groomed. Eye contact good. Motor activity appropriate. Speech within normal limits. Affect congruent, mood euthymic. Thoughts linear, logical, no signs of hallucinations or delusions. Client Response/Progress/Benefit: []Pt receptive of session, engaged throughout. Pt has not yet made an appointment with a therapist, but pt is consistently taking her medications. Pt reports she has been going to the gym, using opposite action, and getting out of the house to cope with daily stressors. Receptive of discussion on sitting with the uncomfortable and emotional urges. Pt contributed to the discussion of distress tolerance and how building distress tolerance can help improve mood stability and resilience. Pt selected wearing something ?form-fitting? to the gym to build distress tolerance. Pt will practice mindfulness skills and positive self-talk to cope with the anxiety in the moment and build confidence. Pt seemed to benefit from support from peers and increasing understanding of distress tolerance. Will continue IOP aftercare group to maintain gains and reinforce healthy coping skills.? Narrative Note: []
== END 2022-12-24 23:59 ==
LOC: BHOG 08:00
PROVIDERS: PCP Family Medicine; Referring Provider Psychiatry & Neurology Psychiatry; Visit Provider Psychiatry & Neurology Psychiatry
DX: F33.2 Major depressive disorder, recurrent severe without psychotic features (principal); F41.1 Generalized anxiety disorder
CPT/HCPCS: 90853

== ENCOUNTER 2022-12-25 07:28 | Outpatient (RCR) | payer MEDICARE, OTHER, SELFPAY ==
--- NOTE | 2023-01-02 14:00 | BH.SGPN.GN ---
Behaviors/Verbalizations/Mental Status: []Client alert and oriented, casually dressed. Eye contact good. Motor activity appropriate. Speech within normal limits. Affect congruent, mood euthymic. Thoughts linear, logical, no signs of hallucinations or delusions. Client Response/Progress/Benefit: []Client receptive of session, engaged and providing supportive feedback throughout group. Reports feeling ?domo depressed? today and self-reports this is related to not consistently engaging in self-care and healthy coping skills over the past week. Noted lack of motivation and plans to try and use more opposite action to get back into a consistent self-care routine. Reports she is planning on meeting with an outpatient therapist soon but has not yet scheduled this, reports she sees her psychiatrist regularly, and is taking her medication as prescribed. Client engaged in the discussion about self-love and worked with the group to identify strategies for increasing self-love. Reports wanting to work on self-love by reminding herself to ?make time to be creative?. Seemed to benefit from reviewing treatment progress and strategies for managing current stressors, as well as learning about how to increase self-love. Client will continue in aftercare for ongoing maintenance and further skill development. Narrative Note: []
--- NOTE | 2023-01-02 15:08 | BH.TPR ---
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 Pt reports she is not consistent with using self-care and other coping skills outside of IOP. Status of Current Problems and Symptoms: Pt reports ongoing stressors with her , lack of support, and chronic depressive symptoms. Pt has still not found an outpatient therapist. Pt is working on increasing her social supports and increasing motivation through opposite action. Pt continues to report moderate symptoms of depression and lack of self-esteem. Problem #1 Problem Name:: Pt will maintain or see a reduction in sx Status of Goals:: Obj 1 complete with ongoing work encouraged. Pt's DSM-5 scores are 44% less than they were at initial IOP admission. Pt continues to report issues with motivation, isolation, and moderate depressive symptoms. Obj 2 - partially complete with ongoing work encouraged. Pt reports using some grounding skills, boundary setting, and self-care, but pt admits that she is not consistent with these practices. Team Recommendations:: Recommended client continue IOP aftercare group in addition to attending regular outpatient counseling in order to maintain gains. Pt is also encouraged to find an outpatient therapist as pt still has not found one after IOP discharge.
--- NOTE | 2023-01-17 14:00 | BH.SGPN.GN ---
Behaviors/Verbalizations/Mental Status: []Pt alert and oriented, casually dressed and groomed. Eye fair. Motor activity appropriate. Speech within normal limits. Affect congruent. Mood euthymic. Thoughts linear, logical, no signs of hallucinations or delusions. Client Response/Progress/Benefit: []Pt responded well to session, attentive and engaged. Pt stated she still does not have a therapist because I'm looking for someone to psychoanalyze me. Pt stated she has been taking medications consistently. Reported she used opposite action over the last week. Client stated she went to visit her grandson and had a good time. Client reported she has stopped going to the gym and doesn't know how to make herself go back. Pt responded well to the discussion of gratitude and the benefits to mental health and relationships. Pt identified different things to focus on each day for the next 7 days to practice gratitude towards self and others. Pt shared she will practice reflecting on something beautiful, lesson from a mistake, health and well-being, and something use everyday to practice gratitude over the next week. Pt recommended ongoing IOP aftercare to promote gains made in IOP and reinforce healthy coping skills. Progress could be hindered if client doesn't choose to establish with outpatient mental health provider to help with maintenance of progress made in IOP.
== END 2023-01-21 23:59 ==
LOC: BHOG 07:28
PROVIDERS: PCP Family Medicine; Referring Provider Psychiatry & Neurology Psychiatry; Visit Provider Psychiatry & Neurology Psychiatry
DX: F33.2 Major depressive disorder, recurrent severe without psychotic features (principal); F41.1 Generalized anxiety disorder
CPT/HCPCS: 90853

== ENCOUNTER 2023-01-22 06:33 | Outpatient (RCR) | payer MEDICARE, OTHER, SELFPAY ==
--- NOTE | 2023-01-23 14:00 | BH.SGPN.GN ---
Behaviors/Verbalizations/Mental Status: []Pt alert and oriented, casually dressed and groomed. Eye contact fair. Motor activity appropriate. Speech within normal limits. Affect constricted, mood irritability. Thoughts linear, logical, no signs of hallucinations or delusions. Client Response/Progress/Benefit: []Pt responded well to session after therapist utilized motivational interviewing to engage pts. Pt reports she has not followed up with her therapist or psychiatrist this week and admits she has not been taking her medications consistently. Pt shared there was an issue with her insurance, but this is getting resolved. Pt and a few other peers admitted that they have not been completing homework for aftercare or utilizing healthy coping skills consistently. This prompted a long discussion on accountability and therapist used motivational interviewing. Pt then became more engaged participated in group discussion defining affirmations and why they are important. Pt provided insight throughout clinician?s presentation of tips for writing personal affirmations. Pt wrote own affirmations, including ??I'm here and that matters.? Pt appeared to benefit from increased knowledge of affirmation writing and increased self-awareness. Will continue aftercare treatment to reinforce healthy coping skills and promote gains. ? Narrative Note: []
--- NOTE | 2023-01-30 14:16 | BH.DS ---
Discharge Summary - Demographics Date of Admission:: 12/05/22 Discharge Date: 01/30/23 Presenting Problems at Admission:: Pt discharged from IOP tx and transitioned to IOP aftercare to maintain gains pt made in IOP and to reinforce healthy coping skills. At admission to IOP aftercare, pt continued to report symptoms of depression, anxiety, and low self-esteem but of reduced intensity and frequency. Pt also was experiencing stressors from caregiving, lack of support, and marital stress. 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 Pt?s depression decreased by 50% since original IOP admission and pt's scores for anxiety decreased by 20% compared to original IOP scores. Additionally, at discharge Pt was reporting ability to maintain more boundaries with her and pt had been exercising more consistently. Pt struggled throughout IOP tx with challenging negative thinking and building social support and pt can continue to work on these in outpatient counseling. Issues Still to be Addressed:: Self-esteem building, gaining social support, maintaining healthy boundaries and self-care practices, and reducing negative thinking patterns. Discharge Recommendations/Instructions:: Pt has been given options for outpatient therapists in the area, but pt shared she has not found a good fit yet. Pt will continue to go to Dr. Watts for medication management. Pt is highly encouraged to schedule with an outpatient therapist. Discharge Handout: Complete Discharge Handout with client on aftercare options and continuity of care.
== END 2023-01-31 06:57 | disposition home or self-care (01) ==
LOC: BHOG 06:33
PROVIDERS: PCP Family Medicine; Referring Provider Psychiatry & Neurology Psychiatry; Visit Provider Psychiatry & Neurology Psychiatry
DX: F33.2 Major depressive disorder, recurrent severe without psychotic features (principal); F41.1 Generalized anxiety disorder
CPT/HCPCS: 90853